=== PATIENT | male | born 1940 | race Caucasian/White ===

== ENCOUNTER 2018-11-14 14:25 | Inpatient (IN) | payer MEDICARE ==
[2018-11-09 16:52] LABS: BASOPHILS % (AUTO) 0.6 % (0-1); EOSINOPHILS # (AUTO) 0.2 X10'3 (0-0.9); EOSINOPHILS % (AUTO) 4.5 % (0-6); HEMATOCRIT 49.8 % (42.0-52.0); HEMOGLOBIN 15.8 g/dl (14.0-17.9); LYMPHOCYTES # (AUTO) 1.3 X10'3 (1.1-4.8); LYMPHOCYTES % (AUTO) 26.1 % (21-51); MEAN CORPUSCULAR HEMOGLOBIN 29.8 PG (27.0-31.0); MEAN CORPUSCULAR HGB CONC 31.8 % (33.0-36.5); MEAN CORPUSCULAR VOLUME 93.7 FL (78-98); MEAN PLATELET VOLUME 8.5 FL (7.4-10.4); MONOCYTES # (AUTO) 0.4 X10'3 (0-0.9); MONOCYTES % (AUTO) 8.4 % (2-12); NEUTROPHILS % (AUTO) 60.4 % (42-75); PLATELET COUNT 175 X10'3 (140-440); RED BLOOD COUNT 5.31 X10'6 (4.70-6.10); RED CELL DISTRIBUTION WIDTH 13.9 % (11.5-14.5); WHITE BLOOD COUNT 4.9 X10'3 (4.5-11.0)
[2018-11-09 17:00] LABS: ALBUMIN 3.8 G/DL (3.4-5.0); ANION GAP 9 (8-16); BLOOD UREA NITROGEN 21 MG/DL (7-18); BUN/CREATININE RATIO 16.7 (5.4-32.0); CALCIUM 8.8 MG/DL (8.5-10.1); CHLORIDE 106 MMOL/L (99-107); CREATININE 1.26 MG/DL (0.60-1.10); GLUCOSE 188 MG/DL (70-104); POTASSIUM 3.7 MMOL/L (3.5-5.1); SODIUM 143 MMOL/L (135-145); TOTAL CARBON DIOXIDE 27.8 MMOL/L (24-32); eGFR 55 ML/MIN
[2018-11-09 17:07] LABS: INR 1.1 INR; PARTIAL THROMBOPLASTIN TIME 27 SECONDS (22-32); PROTHROMBIN TIME 11.5 SECONDS (9.0-12.0)
[2018-11-14] VITALS (15 sets, daily range): BP systolic 109–158; BP diastolic 60–82
[~2018-11-14] VITALS: Ht 182.9 cm; Wt 120.0 kg
[2018-11-14 08:26] LABS: BASOPHILS % (AUTO) 0.4 % (0-1); EOSINOPHILS # (AUTO) 0.3 X10'3 (0-0.9); HEMATOCRIT 46.9 % (42.0-52.0); HEMOGLOBIN 15.3 g/dl (14.0-17.9); LYMPHOCYTES # (AUTO) 1.2 X10'3 (1.1-4.8); MEAN CORPUSCULAR HGB CONC 32.6 % (33.0-36.5); MEAN CORPUSCULAR VOLUME 92.3 FL (78-98); MEAN PLATELET VOLUME 7.7 FL (7.4-10.4); MONOCYTES # (AUTO) 0.4 X10'3 (0-0.9); MONOCYTES % (AUTO) 8.6 % (2-12); NEUTROPHILS # (AUTO) 2.7 X10'3 (1.8-7.7); PLATELET COUNT 175 X10'3 (140-440); RED BLOOD COUNT 5.08 X10'6 (4.70-6.10); RED CELL DISTRIBUTION WIDTH 14.6 % (11.5-14.5); WHITE BLOOD COUNT 4.6 X10'3 (4.5-11.0)
[2018-11-14 08:50] LABS: ALBUMIN 3.8 G/DL (3.4-5.0); ANION GAP 11 (8-16); BLOOD UREA NITROGEN 19 MG/DL (7-18); BUN/CREATININE RATIO 12.9 (5.4-32.0); CALCIUM 9.3 MG/DL (8.5-10.1); CHLORIDE 104 MMOL/L (99-107); CREATININE 1.47 MG/DL (0.60-1.10); GLUCOSE 205 MG/DL (70-104); POTASSIUM 4.1 MMOL/L (3.5-5.1); SODIUM 140 MMOL/L (135-145); TOTAL CARBON DIOXIDE 24.8 MMOL/L (24-32); eGFR 46 ML/MIN
[2018-11-14 08:53] LABS: INR 1.2 INR; PARTIAL THROMBOPLASTIN TIME 27 SECONDS (22-32); PROTHROMBIN TIME 11.7 SECONDS (9.0-12.0)
[2018-11-14] MEDS ORDERED: LORazepam 0.5 MG tablet PO PRN (14:50)
[2018-11-14] MEDS ORDERED: diphenhydrAMINE 25mg capsule PO PRN (14:50)
[2018-11-14] MEDS ORDERED: AMLO5TAB PO (15:02)
[2018-11-14] MEDS ORDERED: ASPI-1265 PO (15:02)
[2018-11-14] MEDS ORDERED: OMEP20CA10 PO (15:02)
[2018-11-14] MEDS ORDERED: ALLO100T PO (15:02)
[2018-11-14] MEDS ORDERED: ATOR80TA PO (15:02)
[2018-11-14] MEDS ORDERED: NAPR-56 PO (15:02)
[2018-11-14] MEDS ORDERED: EVOL140S IM (15:02)
[2018-11-14] MEDS ORDERED: GABA-532 PO (15:02)
[2018-11-14] MEDS ORDERED: LOSA1TAB39 PO (15:02)
[2018-11-14] MEDS: normal saline 1000ml 1,000 ML IV SCH (17:04)
[2018-11-14] MEDS ORDERED: iohexol 350MG/ML 100ml bottle IV ONE (18:04)
[2018-11-14] MEDS ORDERED: LIDOcaine 1% (10mg/ml)w/preservative injection 20ml MDV ONE (18:04)
[2018-11-14] MEDS ORDERED: midazolam 2 mg/2 ml injection ONE (18:04)
[2018-11-14] MEDS ORDERED: fentaNYL/PF 50MCG/1 ML 2ML syringe ONE (18:04)
[2018-11-14] MEDS ORDERED: HYDROcodone/acetaminophen 5mg/325mg tablet PO PRN (19:10)
[2018-11-14] MEDS ORDERED: ondansetron/PF 4mg/2ml inj IV PRN (19:10)
[2018-11-14] MEDS ORDERED: acetaminophen 325mg tablet PO PRN (19:15)
[2018-11-14] MEDS ORDERED: HYDROcodone/acetaminophen 10/325mg tab PO PRN (19:15)
[2018-11-14] MEDS ORDERED: naproxen 500mg tablet PO PRN (19:15)
[2018-11-14] MEDS ORDERED: OXAZEpam 15mg capsule PO PRN (19:15)
[2018-11-14] MEDS ORDERED: proCHLORperazine 10 MG/2 ml inj IV PRN (19:15)
--- NOTE | 2018-11-14 19:45 | NUR ---
Patient in room PCU 3017. I have received report from Yajaira BOWER and had the opportunity to ask questions and assume patient care with Rachelle BOWER.
--- NOTE | 2018-11-14 19:45 | NUR ---
Patient report given, questions answered & plan of care reviewed with SATHISH Bush & Lorrie BOWER, VSS, pt is in stable condition, Taniya mesa CDI, pt in room #3019T, pt is in no distress at this time, pt's and brother at pt's bedside.
[2018-11-14] MEDS: atorvastatin 20mg tablet PO SCH (22:01)
[2018-11-15] VITALS (10 sets, daily range): BP systolic 122–156; BP diastolic 56–87
[2018-11-15] MEDS: normal saline 1000ml 1,000 ML IV SCH ×3 (01:01→20:53)
[2018-11-15] MEDS ORDERED: heparin 10,000 units/1 ML INJ ONE (06:00)
[2018-11-15] MEDS ORDERED: papaverine 30 mg/ml 2ml inj. ONE (06:00)
--- NOTE | 2018-11-15 06:14 | NUR ---
Problems reprioritized. Patient report given, questions answered & plan of care reviewed with Eduarda BOWER. orientee documentation: I have reviewed and agree with all interventions, assessments performed and documented by luly BOWER . pt rested throughout night, home cpap on. voids clear yellow urine, no pain, no complaints. groin site CDI, pulses doppler.
--- NOTE | 2018-11-15 06:25 | NUR ---
Patient in room U 3017. I have received report from and had the opportunity to ask questions and assume patient care. Addendum: 11/15/18 at 0642 by Juany Pressley RN Received report from SATHISH Andrew & SATHISH Bush
[2018-11-15 06:27] LABS: CHOL/HDL RATIO 1.8 (0.00-4.99); CHOLESTEROL 62 MG/DL (0-200); CREATININE 1.11 MG/DL (0.60-1.10); HDL CHOLESTEROL 34 MG/DL (35-60); LDL CHOLESTEROL 15 MG/DL (50-100); TRIGLYCERIDES 110 MG/DL (20-135); eGFR 64 ML/MIN
[2018-11-15] MEDS ORDERED: dextrose 50%-water 50ml dispensing syringe IV PRN ×2 (06:50)
[2018-11-15] MEDS ORDERED: insulin Lispro (HumaLOG) vial - multi-dose SQ SCH (06:50)
[2018-11-15] MEDS ORDERED: dextrose ORAL solution 15 GM/59 ML bottle PO PRN ×2 (06:50)
[2018-11-15] MEDS ORDERED: glucagon, human recombinant 1mg kit SUBCUT PRN (06:50)
[2018-11-15] MEDS ORDERED: MESSAGE TO PHARMACY PO ONE (06:50)
[2018-11-15] MEDS ORDERED: MESSAGE TO NURSING PO ONE ×2 (07:25→10:00)
[2018-11-15] MEDS: losartan 50mg tablet PO SCH (08:35)
[2018-11-15] MEDS: allopurinol 300 MG tablet PO SCH (08:35)
[2018-11-15] MEDS: pantoprazole 40mg Tablet.DR PO SCH (08:36)
[2018-11-15] MEDS: gabapentin 300mg capsule PO SCH (08:36)
[2018-11-15] MEDS: naproxen 500mg tablet PO SCH ×2 (08:36→17:41)
[2018-11-15] MEDS: amLODIPine 5mg tablet PO SCH (08:36)
[2018-11-15] MEDS: aspirin 81mg tab.chew PO SCH (08:37)
[2018-11-15] MEDS: HYDROchlorothiazide 25mg tablet PO SCH (08:38)
[2018-11-15 08:51] LABS: HEMOGLOBIN 14.7 g/dl (14.0-17.9); MEAN CORPUSCULAR HEMOGLOBIN 28.9 PG (27.0-31.0); MEAN CORPUSCULAR HGB CONC 31.2 % (33.0-36.5); MEAN CORPUSCULAR VOLUME 92.7 FL (78-98); MEAN PLATELET VOLUME 8.4 FL (7.4-10.4); PLATELET COUNT 159 X10'3 (140-440); RED BLOOD COUNT 5.07 X10'6 (4.70-6.10); RED CELL DISTRIBUTION WIDTH 13.3 % (11.5-14.5); WHITE BLOOD COUNT 4.3 X10'3 (4.5-11.0)
[2018-11-15 08:59] LABS: ALBUMIN 3.4 G/DL (3.4-5.0); ANION GAP 9 (8-16); BLOOD UREA NITROGEN 16 MG/DL (7-18); BUN/CREATININE RATIO 13.4 (5.4-32.0); CALCIUM 9.3 MG/DL (8.5-10.1); CHLORIDE 106 MMOL/L (99-107); CREATININE 1.19 MG/DL (0.60-1.10); GLUCOSE 162 MG/DL (70-104); POTASSIUM 4.2 MMOL/L (3.5-5.1); SODIUM 142 MMOL/L (135-145); TOTAL CARBON DIOXIDE 27.5 MMOL/L (24-32); eGFR 59 ML/MIN
[2018-11-15 09:00] LABS: PROTHROMBIN TIME 11.9 SECONDS (9.0-12.0)
[2018-11-15 09:01] LABS: INR 1.2 INR; PARTIAL THROMBOPLASTIN TIME 27 SECONDS (22-32)
[2018-11-15 09:07] LABS: HEMOGLOBIN A1C 6.6 % (4.5-6.2)
--- NOTE | 2018-11-15 14:40 | NUR ---
Patient in room MED 307. I have received report from Eduarda BOWER and had the opportunity to ask questions and assume patient care.
--- NOTE | 2018-11-15 14:41 | NUR ---
Problems reprioritized. Patient report given, questions answered & plan of care reviewed with SATHISH Ward. Pt to be transported to room 307.
[2018-11-15 16:22] LABS: CLARITY,URINE CLEAR (Clear); COLOR,URINE YELLOW (Yellow); GLUCOSE, URINE NEGATIVE (Neg); KETONES,URINE NEGATIVE (Neg); LEUKOCYTE ESTERASE ,URINE NEGATIVE (Neg); NITRITES, URINE NEGATIVE (Neg); OCCULT BLOOD,URINE NEGATIVE (Neg); PH,URINE 6.5 (4.8-8.0); PROTEIN,URINE NEGATIVE (Neg)
[2018-11-15 16:37] LABS: UA COLLECTION TYPE VOIDED
[2018-11-15 17:41] LABS: ABG BASE EXCESS 1.1 mmol/L (-2.0-3.0); ABG HCO3 26.3 mmol/L (22.0-26.0); ABG OXYGEN SATURATION 94.3 % (95-98); ABG PCO2 (T) 43.3 mmHg (35.0-48.0); ABG PO2 (T) 71.8 mmHg (83-108); ALLEN'S TEST Positive; FCOHb 1.2 % (0.5-1.5); FLOW 2 L/min; FMetHb 0.2 % (0.3-1.12); PATIENT TEMPERATURE 36.8; RESPIRATORY RATE (OBSERVED) 16 b/min; TOTAL HEMOGLOBIN 15.3 G/dl (14.0-18.0)
[2018-11-15] MEDS ORDERED: ringers solution, lacted 1,000 ML IV ONE (17:47)
--- NOTE | 2018-11-15 18:17 | NUR ---
Problems reprioritized. Patient report given, questions answered & plan of care reviewed with Burton BOWER.
[2018-11-15] MEDS: atorvastatin 20mg tablet PO SCH (20:34)
[2018-11-15] MEDS ORDERED: insulin glargine (Lantus) pen - multi-dose SQ SCH (21:00)
[2018-11-16] VITALS (22 sets, daily range): BP systolic 106–152; BP diastolic 48–72
[2018-11-16] MEDS ORDERED: MESSAGE TO NURSING PO ONE ×3 (01:00→05:30)
[2018-11-16] MEDS ORDERED: metoprolol tartrate 12.5mg (1/2 tablet) PO SCH (05:00)
[2018-11-16] MEDS ORDERED: dextrose 50%-water 50ml dispensing syringe IV PRN ×2 (05:00→11:45)
[2018-11-16 05:27] LABS: EOSINOPHILS # (AUTO) 0.2 X10'3 (0-0.9); EOSINOPHILS % (AUTO) 4.3 % (0-6); HEMATOCRIT 45.5 % (42.0-52.0); HEMOGLOBIN 14.7 g/dl (14.0-17.9); LYMPHOCYTES # (AUTO) 1.3 X10'3 (1.1-4.8); LYMPHOCYTES % (AUTO) 27.5 % (21-51); MEAN CORPUSCULAR HEMOGLOBIN 30.1 PG (27.0-31.0); MEAN CORPUSCULAR HGB CONC 32.2 % (33.0-36.5); MEAN CORPUSCULAR VOLUME 93.5 FL (78-98); MEAN PLATELET VOLUME 8.5 FL (7.4-10.4); MONOCYTES # (AUTO) 0.4 X10'3 (0-0.9); MONOCYTES % (AUTO) 8.7 % (2-12); NEUTROPHILS # (AUTO) 2.7 X10'3 (1.8-7.7); NEUTROPHILS % (AUTO) 58.5 % (42-75); PLATELET COUNT 132 X10'3 (140-440); RED BLOOD COUNT 4.87 X10'6 (4.70-6.10); RED CELL DISTRIBUTION WIDTH 13.4 % (11.5-14.5); WHITE BLOOD COUNT 4.6 X10'3 (4.5-11.0)
[2018-11-16] MEDS: insulin regular, human 100 UNIT in normal saline 100ml IV soln 100 ML IV SCH ×4 (05:30→14:18)
[2018-11-16] MEDS ORDERED: ceFAZolin inj. 3,000 MG in normal saline 100ml IV soln 100 ML IV ONE (05:30)
[2018-11-16] MEDS ORDERED: mupirocin 2% nasal ointment 1gm UD NS SCH (05:30)
[2018-11-16 05:35] LABS: ALBUMIN 3.4 G/DL (3.4-5.0); ANION GAP 8 (8-16); BLOOD UREA NITROGEN 16 MG/DL (7-18); BUN/CREATININE RATIO 14.3 (5.4-32.0); CALCIUM 9.4 MG/DL (8.5-10.1); CHLORIDE 108 MMOL/L (99-107); CREATININE 1.12 MG/DL (0.60-1.10); GLUCOSE 124 MG/DL (70-104); POTASSIUM 4.3 MMOL/L (3.5-5.1); SODIUM 143 MMOL/L (135-145); TOTAL CARBON DIOXIDE 26.6 MMOL/L (24-32); eGFR 63 ML/MIN
[2018-11-16 05:47] LABS: INR 1.2 INR; PROTHROMBIN TIME 12.2 SECONDS (9.0-12.0)
[2018-11-16] MEDS ORDERED: LORazepam 2 mg/ml vial IV ONE (06:00)
[2018-11-16] MEDS ORDERED: famotidine 20mg tablet PO ONE (06:00)
--- NOTE | 2018-11-16 06:44 | NUR ---
Pt left for OR
[2018-11-16] MEDS: normal saline 1000ml 1,000 ML IV SCH (06:50)
[2018-11-16 06:51] LABS: PLATELET ESTIMATE DECREASED
[2018-11-16] MEDS ORDERED: SUFENTANIL CITRATE 50 MCG/ML 2ml ampule IV ONE ×2 (06:52→08:59)
[2018-11-16] MEDS ORDERED: MIDAZolam 1mg/ml 10ml vial ONE (06:52)
[2018-11-16] MEDS ORDERED: albumin 25% 50mL bottle IV ONE (06:53)
[2018-11-16] MEDS ORDERED: propofol 10mg/ml 20ml vial IV ONE (06:53)
[2018-11-16] MEDS ORDERED: heparin 1,000 units/ml 10ml inj ONE (06:53)
[2018-11-16] MEDS ORDERED: methylPREDNISolone sod succ 1000mg vial ONE (06:53)
[2018-11-16] MEDS ORDERED: aminocaproic acid 250 MG/1 ML inj. ONE (06:53)
[2018-11-16] MEDS ORDERED: potassium Cl 2 mEq/ml inj IV ONE (06:53)
[2018-11-16] MEDS ORDERED: protamine sulf. 10mg/ml inj. IV ONE (06:53)
[2018-11-16] MEDS ORDERED: sodium bicarbonate (8.4%) 1 mEq/ml syringe ONE (06:53)
[2018-11-16] MEDS ORDERED: calcium chloride 100 MG/1 ML inj IV ONE (06:53)
[2018-11-16] MEDS ORDERED: INSULIN R 100 UNIT in NS 100ML (1 UNIT/1 ML) BAG IV ONE (06:53)
[2018-11-16] MEDS ORDERED: heparin 10,000 units/1 ML INJ ONE (06:53)
[2018-11-16] MEDS ORDERED: isoflurane 100ml inhalation liquid IH ONE (06:53)
[2018-11-16] MEDS ORDERED: magnesium sulf 1 GM/2 ML ONE (06:53)
[2018-11-16] MEDS ORDERED: nitroGLYCERIN in D5W 50mg/250ml (Tridil) infusion IV ONE (06:53)
[2018-11-16] MEDS ORDERED: LIDOcaine 2% (20 mg/ml) 5ml cardiac syringe ONE (06:53)
[2018-11-16] MEDS ORDERED: insulin glargine (Lantus) pen - multi-dose SQ PRN (07:25)
[2018-11-16 07:30] LABS: ABG BASE EXCESS 0.1 mmol/L (-2.0-3.0); ABG OXYGEN SATURATION 99.4 % (95-98); ABG PCO2 25.4 mmHg (35.0-45.0); ABG PH 7.536 (7.350-7.450); ABG PO2 355.4 mmHg (60.0-100.0); CL (ABG) 110 mmol/L (99-107); FCOHb 1.2 % (0.5-1.5); FMetHb 0.2 % (0.3-1.12); GLUCOSE (ABG) 124 mg/dl (70-105); IONIZED CA (ABG) 1.17 mmol/L (1.03-1.32); K (ABG) 4.3 mmol/L (3.3-5.1); NA (ABG) 138 mmol/L (135-145); TOTAL HEMOGLOBIN 14.5 G/dl (14.0-18.0)
[2018-11-16] MEDS: amLODIPine 5mg tablet PO SCH (08:00)
[2018-11-16] MEDS: HYDROchlorothiazide 25mg tablet PO SCH (08:00)
[2018-11-16] MEDS: allopurinol 300 MG tablet PO SCH (08:00)
[2018-11-16] MEDS: losartan 50mg tablet PO SCH (08:00)
[2018-11-16] MEDS: gabapentin 300mg capsule PO SCH (08:00)
[2018-11-16] MEDS: aspirin 81mg tab.chew PO SCH (08:00)
[2018-11-16] MEDS: pantoprazole 40mg Tablet.DR PO SCH (08:00)
[2018-11-16] MEDS ORDERED: heparin 10,000 units/1 ML INJ IR ONE (08:07)
[2018-11-16] MEDS ORDERED: papaverine 30 mg/ml 2ml inj. IA ONE (08:07)
[2018-11-16 08:20] LABS: ACT @ 1.70 U 357 SEC (193-297); ACT @ 2.84 U 521 SEC (260-420); BASELINE ACT 162 SEC (101-148)
[2018-11-16] MEDS: naproxen 500mg tablet PO SCH (08:30)
[2018-11-16 09:00] LABS: ABG BASE EXCESS 0.4 mmol/L (-2.0-3.0); ABG HCO3 24.8 mmol/L (22.0-26.0); ABG OXYGEN SATURATION 99.3 % (95-98); ABG PCO2 38.8 mmHg (35.0-45.0); ABG PH 7.423 (7.350-7.450); ABG PO2 374.3 mmHg (60.0-100.0); CL (ABG) 108 mmol/L (99-107); FCOHb 0.6 % (0.5-1.5); FMetHb 0.3 % (0.3-1.12); FO2Hb 98.4 % (94-100); GLUCOSE (ABG) 133 mg/dl (70-105); IONIZED CA (ABG) 1.09 mmol/L (1.03-1.32); K (ABG) 5.4 mmol/L (3.3-5.1); NA (ABG) 135 mmol/L (135-145); TOTAL HEMOGLOBIN 11.7 G/dl (14.0-18.0)
[2018-11-16] MEDS ORDERED: insulin Lispro (HumaLOG) vial - multi-dose SQ SCH (09:00)
[2018-11-16] MEDS ORDERED: ipratropium/albuterol 3ml nebule IH PRN (09:15)
[2018-11-16 09:31] LABS: ABG BASE EXCESS VENOUS 0.7 mmol/L; ABG HCO3 VENOUS 25.4 mmol/L; ABG PO2 VENOUS 52.1 mmHg; CL (ABG) 107 mmol/L (99-107); FCOHb VENOUS 1.1 %; FHHb VENOUS 11.5 %; FMetHb VENOUS 0.2 %; FO2Hb VENOUS 87.2 %; GLUCOSE (ABG) 149 mg/dl (70-105); K (ABG) 5.7 mmol/L (3.3-5.1); NA (ABG) 136 mmol/L (135-145); TOTAL HEMOGLOBIN 11.4 G/dl (14.0-18.0)
[2018-11-16 10:05] LABS: ABG BASE EXCESS 0.2 mmol/L (-2.0-3.0); ABG HCO3 24.8 mmol/L (22.0-26.0); ABG OXYGEN SATURATION 99.3 % (95-98); ABG PCO2 39.7 mmHg (35.0-45.0); ABG PH 7.413 (7.350-7.450); ABG PO2 225.7 mmHg (60.0-100.0); CL (ABG) 108 mmol/L (99-107); FO2Hb 98.3 % (94-100); GLUCOSE (ABG) 154 mg/dl (70-105); IONIZED CA (ABG) 1.11 mmol/L (1.03-1.32); NA (ABG) 135 mmol/L (135-145); TOTAL HEMOGLOBIN 11.6 G/dl (14.0-18.0)
[2018-11-16 10:36] LABS: ABG BASE EXCESS -0.2 mmol/L (-2.0-3.0); ABG HCO3 23.8 mmol/L (22.0-26.0); ABG OXYGEN SATURATION 98.3 % (95-98); ABG PCO2 36.5 mmHg (35.0-45.0); ABG PH 7.432 (7.350-7.450); ABG PO2 133.7 mmHg (60.0-100.0); CL (ABG) 107 mmol/L (99-107); FCOHb 0.7 % (0.5-1.5); FMetHb 0.3 % (0.3-1.12); FO2Hb 97.3 % (94-100); GLUCOSE (ABG) 126 mg/dl (70-105); IONIZED CA (ABG) 1.23 mmol/L (1.03-1.32); K (ABG) 5.6 mmol/L (3.3-5.1); NA (ABG) 136 mmol/L (135-145); TOTAL HEMOGLOBIN 11.1 G/dl (14.0-18.0)
--- NOTE | 2018-11-16 10:55 | NUR ---
Received to room 2011B, accompanied by MDs and surgical crew. Placed on ventilator, to campus monitor, arterial line and PA line pressure monitored. Chest tubes to suction at 20 cm. Kang cath to gravity drainage. Dressings are dry and intact. See assessment record. All vasoactive drugs are infusing via central line.Dopamine at 1 mcg, Tridil at 50 mcg to keep sbp less then 130 Volume infusing CXR and lab drawn Addendum: 11/16/18 at 1734 by Kaitlynn Freitas RN pt arrived at 1155
[2018-11-16 11:26] LABS: ABG BASE EXCESS VENOUS -2.8 mmol/L; ABG PCO2 VENOUS 43.8 mmHg; ABG PO2 VENOUS 46.1 mmHg; CL (ABG) 108 mmol/L (99-107); FCOHb VENOUS 1.1 %; FHHb VENOUS 19.6 %; FMetHb VENOUS 0.4 %; FO2Hb VENOUS 78.9 %; GLUCOSE (ABG) 99 mg/dl (70-105); IONIZED CA (ABG) 1.26 mmol/L (1.03-1.32); K (ABG) 4.9 mmol/L (3.3-5.1); NA (ABG) 138 mmol/L (135-145); TOTAL HEMOGLOBIN 11.7 G/dl (14.0-18.0)
[2018-11-16] MEDS ORDERED: DOPamine 400mg/D5W 250ml 250 ML IV PRN (11:44)
[2018-11-16] MEDS ORDERED: niCARDipine-NS 40mg/200ml IVPB 200 ML IV PRN (11:44)
[2018-11-16] MEDS ORDERED: nitroGLYCERIN-Tridil 50MG/D5W 250 ML IV PRN (11:44)
[2018-11-16] MEDS ORDERED: Neutra Phos packet PO PRN (11:45)
[2018-11-16] MEDS ORDERED: insulin regular, human inj. 100 UNITS in normal saline 100ml IV soln 100 ML IV SCH ×2 (11:45)
[2018-11-16] MEDS ORDERED: HYDROcodone/acetaminophen 10/325mg tab PO PRN ×2 (11:45)
[2018-11-16] MEDS ORDERED: pantoprazole 40 MG vial IV ONE (11:45)
[2018-11-16] MEDS ORDERED: metoclopramide 5 mg/ml inj IV PRN (11:45)
[2018-11-16] MEDS ORDERED: ondansetron/PF 4mg/2ml inj IV PRN (11:45)
[2018-11-16] MEDS ORDERED: potassium Cl 20mEq/100mL bag 100 ML IV PRN ×3 (11:45)
[2018-11-16] MEDS ORDERED: albumin (Human) 5% 250ml 250 ML IV PRN (11:45)
[2018-11-16] MEDS ORDERED: normal saline 250ml IV soln 250 ML IV PRN (11:45)
[2018-11-16] MEDS ORDERED: sodium phosphate inj. 30 MMOL in dextrose 5%-water 250 ML IV PRN (11:45)
[2018-11-16] MEDS ORDERED: morphine 4 MG/ML inj SYRINge IV PRN (11:45)
[2018-11-16] MEDS ORDERED: magnesium 4gm in 100ml NS 100 ML IV PRN (11:45)
[2018-11-16] MEDS ORDERED: magnesium hydroxide 30ml (MOM) UD suspension PO PRN (11:45)
[2018-11-16] MEDS ORDERED: acetaminophen 325mg tablet PO PRN (11:45)
[2018-11-16] MEDS ORDERED: sodium phosphate inj. 15 MMOL in dextrose 5%-water 150 ML IV PRN (11:45)
[2018-11-16 11:50] LABS: ACTIVATED CLOTTING TIME 122 SEC (101-148)
[2018-11-16] MEDS ORDERED: rocuronium 10mg/ml inj IV ONE (12:06)
[2018-11-16] MEDS ORDERED: glycopyrrolate 0.2mg/ml inj ONE (12:06)
[2018-11-16] MEDS ORDERED: phenylephrine 10mg/ml inj. ONE (12:06)
[2018-11-16] MEDS ORDERED: ePHEDrine 50MG/ML INJ. ONE (12:06)
[2018-11-16] MEDS ORDERED: etomidate 2mg/ml inj. ONE (12:06)
[2018-11-16] MEDS ORDERED: LIDOcaine 2% (20mg/ml) 5ml vial ONE (12:06)
--- NOTE | 2018-11-16 12:15 | NUR ---
Pt in junc rhythm hr 60 Atrial pacer turned on at 78 with good capture VSS
[2018-11-16 12:21] LABS: ABG BASE EXCESS -2.1 mmol/L (-2.0-3.0); ABG HCO3 22.8 mmol/L (22.0-26.0); ABG OXYGEN SATURATION 95.9 % (95-98); ABG PCO2 (T) 39.5 mmHg (35.0-48.0); ABG PH (T) 7.379 (7.350-7.450); ABG PO2 (T) 89.3 mmHg (83-108); FCOHb 0.6 % (0.5-1.5); FMetHb 0.2 % (0.3-1.12); FO2Hb 95.1 % (94-100); MINUTE VOLUME 11 L/min; PEEP 5 cm H2O; RESPIRATORY RATE 12 b/min; RESPIRATORY RATE (OBSERVED) 12 b/min; TIDAL VOLUME 800 mL; TOTAL HEMOGLOBIN 14.2 G/dl (14.0-18.0)
[2018-11-16 12:25] LABS: BASOPHILS % (AUTO) 0.1 % (0-1); EOSINOPHILS # (AUTO) 0.1 X10'3 (0-0.9); EOSINOPHILS % (AUTO) 0.9 % (0-6); HEMATOCRIT 41.3 % (42.0-52.0); HEMOGLOBIN 13.4 g/dl (14.0-17.9); LYMPHOCYTES # (AUTO) 0.7 X10'3 (1.1-4.8); LYMPHOCYTES % (AUTO) 8.7 % (21-51); MEAN CORPUSCULAR HEMOGLOBIN 30.4 PG (27.0-31.0); MEAN CORPUSCULAR HGB CONC 32.4 % (33.0-36.5); MEAN CORPUSCULAR VOLUME 93.8 FL (78-98); MONOCYTES # (AUTO) 0.2 X10'3 (0-0.9); MONOCYTES % (AUTO) 2.7 % (2-12); NEUTROPHILS # (AUTO) 6.8 X10'3 (1.8-7.7); NEUTROPHILS % (AUTO) 87.6 % (42-75); PLATELET COUNT 118 X10'3 (140-440); RED BLOOD COUNT 4.41 X10'6 (4.70-6.10); RED CELL DISTRIBUTION WIDTH 13.2 % (11.5-14.5); WHITE BLOOD COUNT 7.8 X10'3 (4.5-11.0)
--- NOTE | 2018-11-16 12:30 | NUR ---
Cardene gtt started to keep sbp less then 130 tridil gtt being weaned Mod amt of chest tube drainage noted
[2018-11-16 12:37] LABS: ALANINE AMINOTRANSFERASE 21 U/L (12-78); ALBUMIN 3.2 G/DL (3.4-5.0); ALBUMIN/GLOBULIN RATIO 1.5 (1.1-1.5); ALKALINE PHOSPHATASE 50 IU/L (46-116); ANION GAP 8 (8-16); ASPARTATE AMINO TRANSFERASE 43 U/L (10-37); BILIRUBIN,TOTAL 1.2 MG/DL (0.1-1.0); BLOOD UREA NITROGEN 15 MG/DL (7-18); BUN/CREATININE RATIO 12.1 (5.4-32.0); CALCIUM 8.8 MG/DL (8.5-10.1); CHLORIDE 110 MMOL/L (99-107); CREATININE 1.24 MG/DL (0.60-1.10); GLUCOSE 101 MG/DL (70-104); MAGNESIUM 3.1 MG/DL (1.5-2.4); PHOSPHORUS 1.6 MG/DL (2.3-4.5); POTASSIUM 4.4 MMOL/L (3.5-5.1); SODIUM 144 MMOL/L (135-145); TOTAL PROTEIN 5.4 G/DL (6.4-8.2); eGFR 56 ML/MIN
[2018-11-16 12:42] LABS: INR 1.3 INR; PARTIAL THROMBOPLASTIN TIME 30 SECONDS (22-32); PROTHROMBIN TIME 13.2 SECONDS (9.0-12.0)
--- NOTE | 2018-11-16 12:53 | NUR ---
Dr. Roque at bedside Aware of 192 ml in chest tube output CI now 2.4
[2018-11-16 13:00] LABS: K (ABG) 6.2 mmol/L (3.3-5.1)
[2018-11-16] MEDS: insulin Lispro (HumaLOG) vial - multi-dose SQ SCH ×2 (13:00→16:58)
[2018-11-16] MEDS: sodium chloride 0.45% 1,000 ML IV SCH (13:15)
--- NOTE | 2018-11-16 14:00 | NUR ---
Family into visit with progress report given Pt still sedated from surg Slow to wean fio2 Sat 95 % RR 12 Weaning cardene gtt Dopamine remains on Insulin gtt started per protocal Chest tube drainage remains mod amt VSS Hemodyn stable
[2018-11-16] MEDS: morphine 4 MG/ML inj SYRINge IV PRN ×2 (15:00→19:06)
--- NOTE | 2018-11-16 15:00 | NUR ---
Pt turned from side to side and reposit Open eyes to stimuli Does not follow CT drained 100 ml with pt coughing Dr. Roque called and notified Orders received and noted Cardene d/c Dopamine at 2 mcg with CI 2.4
--- NOTE | 2018-11-16 15:48 | NUR ---
2 units cryoprecipitate given and 10 Pk of platelets given Chest tube draining 50 to 100 ml per hour Urine output QS Pt starting to awaken open eyes and coughs CLEMONS but does not follow or nod head to questions VSS and Hemodyn stable
[2018-11-16] MEDS: ceFAZolin 1GM/D5W- ADD-VANTAGE 50 ML IV SCH (16:58)
--- NOTE | 2018-11-16 17:00 | NUR ---
Assessment ungh VSS and Hemodyn stable on dopamine 2 mcg Chest tube drainage slowing Reposit on left side Opens eyes becomes restless and anxious
[2018-11-16 18:08] LABS: BASOPHILS # (AUTO) 0.1 X10'3 (0-0.2); BASOPHILS % (AUTO) 1.1 % (0-1); EOSINOPHILS % (AUTO) 0.3 % (0-6); HEMATOCRIT 41.1 % (42.0-52.0); HEMOGLOBIN 13.6 g/dl (14.0-17.9); LYMPHOCYTES # (AUTO) 0.3 X10'3 (1.1-4.8); MEAN CORPUSCULAR HEMOGLOBIN 30.2 PG (27.0-31.0); MEAN CORPUSCULAR VOLUME 91.5 FL (78-98); MEAN PLATELET VOLUME 8.3 FL (7.4-10.4); MONOCYTES # (AUTO) 0.2 X10'3 (0-0.9); MONOCYTES % (AUTO) 2.6 % (2-12); NEUTROPHILS # (AUTO) 7.7 X10'3 (1.8-7.7); PLATELET COUNT 122 X10'3 (140-440); RED BLOOD COUNT 4.49 X10'6 (4.70-6.10); RED CELL DISTRIBUTION WIDTH 13.6 % (11.5-14.5); WHITE BLOOD COUNT 8.3 X10'3 (4.5-11.0)
[2018-11-16 18:20] LABS: ALBUMIN 3.4 G/DL (3.4-5.0); ANION GAP 11 (8-16); BLOOD UREA NITROGEN 18 MG/DL (7-18); BUN/CREATININE RATIO 12.9 (5.4-32.0); CALCIUM 9.3 MG/DL (8.5-10.1); CHLORIDE 109 MMOL/L (99-107); GLUCOSE 183 MG/DL (70-104); MAGNESIUM 2.7 MG/DL (1.5-2.4); PHOSPHORUS 1.8 MG/DL (2.3-4.5); POTASSIUM 4.7 MMOL/L (3.5-5.1); SODIUM 143 MMOL/L (135-145); TOTAL CARBON DIOXIDE 22.9 MMOL/L (24-32); eGFR 49 ML/MIN
--- NOTE | 2018-11-16 18:30 | NUR ---
Problems reprioritized. Patient report given, questions answered & plan of care reviewed with Dennise BOWER.
[2018-11-16] MEDS: docusate sod 100mg capsule PO SCH (20:00)
[2018-11-16] MEDS: vancomycin/NS 1 GM ADD-VANTAGE 250 ML IV SCH (20:30)
[2018-11-16] MEDS: mupirocin 2% nasal ointment 1gm UD NS SCH (20:31)
[2018-11-16 23:31] LABS: ABG BASE EXCESS -1.7 mmol/L (-2.0-3.0); ABG HCO3 22.7 mmol/L (22.0-26.0); ABG OXYGEN SATURATION 97.2 % (95-98); ABG PCO2 (T) 38.1 mmHg (35.0-48.0); ABG PH (T) 7.394 (7.350-7.450); ABG PO2 (T) 100.6 mmHg (83-108); FCOHb 0.6 % (0.5-1.5); FMetHb 0.3 % (0.3-1.12); FO2Hb 96.3 % (94-100); MINUTE VOLUME 8 L/min; PATIENT TEMPERATURE 37.2; PEEP 5 cm H2O; RESPIRATORY RATE 0 b/min; TIDAL VOLUME 1010 mL; TOTAL HEMOGLOBIN 13.5 G/dl (14.0-18.0)
[2018-11-17] VITALS (24 sets, daily range): BP systolic 99–142; BP diastolic 51–72
[2018-11-17] MEDS: ceFAZolin 1GM/D5W- ADD-VANTAGE 50 ML IV SCH ×4 (00:18→23:33)
[2018-11-17 03:27] LABS: BASOPHILS % (AUTO) 0.1 % (0-1); EOSINOPHILS % (AUTO) 0 % (0-6); HEMATOCRIT 38.5 % (42.0-52.0); HEMOGLOBIN 12.4 g/dl (14.0-17.9); LYMPHOCYTES # (AUTO) 0.4 X10'3 (1.1-4.8); LYMPHOCYTES % (AUTO) 3.8 % (21-51); MEAN CORPUSCULAR HEMOGLOBIN 30.2 PG (27.0-31.0); MEAN CORPUSCULAR HGB CONC 32.3 % (33.0-36.5); MEAN CORPUSCULAR VOLUME 93.5 FL (78-98); MEAN PLATELET VOLUME 8.5 FL (7.4-10.4); MONOCYTES # (AUTO) 0.5 X10'3 (0-0.9); NEUTROPHILS # (AUTO) 9.4 X10'3 (1.8-7.7); NEUTROPHILS % (AUTO) 91.1 % (42-75); PLATELET COUNT 109 X10'3 (140-440); RED BLOOD COUNT 4.12 X10'6 (4.70-6.10); RED CELL DISTRIBUTION WIDTH 13.6 % (11.5-14.5); WHITE BLOOD COUNT 10.3 X10'3 (4.5-11.0)
[2018-11-17 03:36] LABS: PROTHROMBIN TIME 11.9 SECONDS (9.0-12.0)
[2018-11-17 03:37] LABS: INR 1.2 INR; PARTIAL THROMBOPLASTIN TIME 25 SECONDS (22-32)
[2018-11-17 03:38] LABS: ALANINE AMINOTRANSFERASE 21 U/L (12-78); ALBUMIN 3.1 G/DL (3.4-5.0); ALBUMIN/GLOBULIN RATIO 1.3 (1.1-1.5); ALKALINE PHOSPHATASE 45 IU/L (46-116); ANION GAP 8 (8-16); ASPARTATE AMINO TRANSFERASE 59 U/L (10-37); BILIRUBIN,TOTAL 0.7 MG/DL (0.1-1.0); BLOOD UREA NITROGEN 23 MG/DL (7-18); BUN/CREATININE RATIO 14.5 (5.4-32.0); CALCIUM 8.7 MG/DL (8.5-10.1); CHLORIDE 112 MMOL/L (99-107); CREATININE 1.59 MG/DL (0.60-1.10); GLUCOSE 132 MG/DL (70-104); MAGNESIUM 2.3 MG/DL (1.5-2.4); PHOSPHORUS 2.6 MG/DL (2.3-4.5); POTASSIUM 4.7 MMOL/L (3.5-5.1); SODIUM 145 MMOL/L (135-145); TOTAL CARBON DIOXIDE 25.5 MMOL/L (24-32); TOTAL PROTEIN 5.5 G/DL (6.4-8.2); eGFR 42 ML/MIN
--- NOTE | 2018-11-17 06:24 | NUR ---
Problems reprioritized. Patient report given, questions answered & plan of care reviewed with RENETTA BOWER.
--- NOTE | 2018-11-17 06:32 | NUR ---
Hold beta aron this AM per Ari SEPULVEDA
[2018-11-17] MEDS ORDERED: furosemide 20 MG/2 ML vial IV ONE (06:35)
[2018-11-17] MEDS: metoprolol tartrate 12.5mg (1/2 tablet) PO SCH ×2 (08:00→21:25)
[2018-11-17] MEDS: docusate sod 100mg capsule PO SCH ×2 (08:49→21:25)
[2018-11-17] MEDS: gabapentin 300mg capsule PO SCH (08:49)
[2018-11-17] MEDS: allopurinol 300 MG tablet PO SCH (08:49)
[2018-11-17] MEDS: atorvastatin 10mg tablet PO SCH (08:49)
[2018-11-17] MEDS: vancomycin/NS 1 GM ADD-VANTAGE 250 ML IV SCH ×2 (08:49→21:24)
[2018-11-17] MEDS: mupirocin 2% nasal ointment 1gm UD NS SCH ×2 (08:49→21:25)
[2018-11-17] MEDS: aspirin 325mg tablet, delayed-release (Ecotrin) PO SCH (08:49)
[2018-11-17] MEDS: insulin Lispro (HumaLOG) vial - multi-dose SQ SCH ×2 (10:55→13:00)
[2018-11-17] MEDS: magnesium 2GM in 50ml NS 50 ML IV PRN (10:56)
--- NOTE | 2018-11-17 12:00 | NUR ---
PA line and ART line removed; no ectopy noted; patient tolerated well. Cannula tips intact.
[2018-11-17] MEDS: insulin regular, human 100 UNIT in normal saline 100ml IV soln 100 ML IV SCH ×2 (14:50)
[2018-11-17] MEDS ORDERED: insulin Lispro (HumaLOG) vial - multi-dose SQ SCH (17:15)
--- NOTE | 2018-11-17 18:32 | NUR ---
Problems reprioritized. Patient report given, questions answered & plan of care reviewed with Krunal BOWER.
[2018-11-17] MEDS: insulin glargine (Lantus) pen - multi-dose SQ SCH (21:00)
[2018-11-18] VITALS (19 sets, daily range): BP systolic 97–147; BP diastolic 64–79
[2018-11-18 03:51] LABS: BASOPHILS % (AUTO) 0 % (0-1); EOSINOPHILS % (AUTO) 0 % (0-6); HEMATOCRIT 36.1 % (42.0-52.0); HEMOGLOBIN 11.8 g/dl (14.0-17.9); LYMPHOCYTES # (AUTO) 0.5 X10'3 (1.1-4.8); LYMPHOCYTES % (AUTO) 4.3 % (21-51); MEAN CORPUSCULAR HEMOGLOBIN 30.3 PG (27.0-31.0); MEAN CORPUSCULAR HGB CONC 32.7 % (33.0-36.5); MEAN CORPUSCULAR VOLUME 92.8 FL (78-98); MEAN PLATELET VOLUME 9.1 FL (7.4-10.4); MONOCYTES # (AUTO) 0.8 X10'3 (0-0.9); MONOCYTES % (AUTO) 7.2 % (2-12); NEUTROPHILS # (AUTO) 9.9 X10'3 (1.8-7.7); NEUTROPHILS % (AUTO) 88.5 % (42-75); PLATELET COUNT 96 X10'3 (140-440); RED BLOOD COUNT 3.89 X10'6 (4.70-6.10); RED CELL DISTRIBUTION WIDTH 13.6 % (11.5-14.5); WHITE BLOOD COUNT 11.3 X10'3 (4.5-11.0)
[2018-11-18 03:52] LABS: ALBUMIN 3.1 G/DL (3.4-5.0); ANION GAP 7 (8-16); BLOOD UREA NITROGEN 34 MG/DL (7-18); BUN/CREATININE RATIO 19.9 (5.4-32.0); CALCIUM 8.5 MG/DL (8.5-10.1); CHLORIDE 106 MMOL/L (99-107); CREATININE 1.71 MG/DL (0.60-1.10); GLUCOSE 157 MG/DL (70-104); MAGNESIUM 2.5 MG/DL (1.5-2.4); PHOSPHORUS 3.8 MG/DL (2.3-4.5); POTASSIUM 5.3 MMOL/L (3.5-5.1); SODIUM 139 MMOL/L (135-145); TOTAL CARBON DIOXIDE 25.6 MMOL/L (24-32); eGFR 39 ML/MIN
--- NOTE | 2018-11-18 06:38 | NUR ---
Problems reprioritized. Patient report given, questions answered & plan of care reviewed with SATHISH Demarco.
--- NOTE | 2018-11-18 06:51 | NUR ---
Patient in room ICU 2042. I have received report from SATHISH Hector and had the opportunity to ask questions and assume patient care.
[2018-11-18] MEDS: pantoprazole 40mg Tablet.DR PO SCH (07:38)
[2018-11-18] MEDS ORDERED: EVOLOCUMAB IM SCH (08:00)
[2018-11-18] MEDS: docusate sod 100mg capsule PO SCH ×2 (08:26→20:09)
[2018-11-18] MEDS: metoprolol tartrate 12.5mg (1/2 tablet) PO SCH ×2 (08:26→20:00)
[2018-11-18] MEDS: atorvastatin 10mg tablet PO SCH (08:26)
[2018-11-18] MEDS: gabapentin 300mg capsule PO SCH (08:27)
[2018-11-18] MEDS: aspirin 325mg tablet, delayed-release (Ecotrin) PO SCH (08:27)
[2018-11-18] MEDS: mupirocin 2% nasal ointment 1gm UD NS SCH (08:27)
[2018-11-18] MEDS: allopurinol 300 MG tablet PO SCH (08:30)
[2018-11-18] MEDS ORDERED: amiodarone 150mg/dext, iso-os 100 ML IV ONE ×2 (10:18→10:20)
[2018-11-18] MEDS ORDERED: amiodarone/D5 360MG/200ML BAG 200 ML IV ONE (10:19)
[2018-11-18] MEDS: amiodarone/D5 360MG/200ML BAG 200 ML IV SCH ×3 (10:41→22:28)
[2018-11-18] MEDS: sodium chloride 0.45% 1,000 ML IV SCH ×2 (11:44→16:40)
--- NOTE | 2018-11-18 18:35 | NUR ---
Patient in room ICU 2042. I have received report from Dav BOWER, and had the opportunity to ask questions and assume patient care.
--- NOTE | 2018-11-18 19:15 | NUR ---
PT is sitting up in chair with 2 visitors at bedside. PT is on Amio gtt, running @ 0.5mg/hr. PT converted to SR just before 1900. PT consumed very little of his dinner. Linens changed and bed is ready for when PT is ready to get back to bed. Call light is within reach. Will continue to monitor.
[2018-11-18] MEDS: insulin glargine (Lantus) pen - multi-dose SQ SCH (21:00)
--- NOTE | 2018-11-18 22:00 | NUR ---
PT sleeping with no s/s of distress noted at this time. VSS. PT remains in SR. On Home CPAP machine. Bed is locked and low. Will continue to monitor.
[2018-11-19] VITALS (24 sets, daily range): BP systolic 112–154; BP diastolic 57–91
[2018-11-19] MEDS: insulin regular, human 100 UNIT in normal saline 100ml IV soln 100 ML IV SCH ×2 (00:10)
--- NOTE | 2018-11-19 00:52 | NUR ---
Problems reprioritized. Patient report given, questions answered & plan of care reviewed with Best BOWER.
--- NOTE | 2018-11-19 04:16 | NUR ---
[id number] I have received report and assumed care of pt. pt resting in bed denies distress
[2018-11-19] MEDS: amiodarone/D5 360MG/200ML BAG 200 ML IV SCH (04:46)
[2018-11-19 07:17] LABS: HEMOGLOBIN 11.1 g/dl (14.0-17.9)
[2018-11-19 07:23] LABS: BASOPHILS % (AUTO) 0.1 % (0-1); EOSINOPHILS % (AUTO) 0.1 % (0-6); HEMATOCRIT 34.6 % (42.0-52.0); LYMPHOCYTES # (AUTO) 0.9 X10'3 (1.1-4.8); LYMPHOCYTES % (AUTO) 12.3 % (21-51); MEAN CORPUSCULAR HEMOGLOBIN 30.1 PG (27.0-31.0); MEAN CORPUSCULAR HGB CONC 32.2 % (33.0-36.5); MEAN CORPUSCULAR VOLUME 93.5 FL (78-98); MONOCYTES # (AUTO) 0.7 X10'3 (0-0.9); MONOCYTES % (AUTO) 9.9 % (2-12); NEUTROPHILS # (AUTO) 5.9 X10'3 (1.8-7.7); NEUTROPHILS % (AUTO) 77.6 % (42-75); RED CELL DISTRIBUTION WIDTH 13.7 % (11.5-14.5); WHITE BLOOD COUNT 7.5 X10'3 (4.5-11.0)
[2018-11-19 07:26] LABS: ALBUMIN 2.8 G/DL (3.4-5.0); ANION GAP 6 (8-16); BLOOD UREA NITROGEN 39 MG/DL (7-18); BUN/CREATININE RATIO 28.9 (5.4-32.0); CALCIUM 8.4 MG/DL (8.5-10.1); CHLORIDE 106 MMOL/L (99-107); CREATININE 1.35 MG/DL (0.60-1.10); GLUCOSE 130 MG/DL (70-104); MAGNESIUM 2.2 MG/DL (1.5-2.4); PHOSPHORUS 3.1 MG/DL (2.3-4.5); POTASSIUM 4.7 MMOL/L (3.5-5.1); SODIUM 140 MMOL/L (135-145); TOTAL CARBON DIOXIDE 27.7 MMOL/L (24-32); eGFR 51 ML/MIN
[2018-11-19 07:27] LABS: MEAN PLATELET VOLUME 8.4 FL (7.4-10.4); PLATELET COUNT 76 X10'3 (140-440)
[2018-11-19] MEDS: atorvastatin 20mg tablet PO SCH (07:34)
[2018-11-19] MEDS: pantoprazole 40mg Tablet.DR PO SCH (07:35)
[2018-11-19] MEDS: gabapentin 300mg capsule PO SCH (07:35)
[2018-11-19] MEDS: aspirin 81mg tablet.DR PO SCH (07:35)
[2018-11-19] MEDS: allopurinol 300 MG tablet PO SCH (07:35)
[2018-11-19] MEDS: docusate sod 100mg capsule PO SCH ×2 (07:35→20:35)
[2018-11-19] MEDS: metoprolol tartrate 12.5mg (1/2 tablet) PO SCH ×2 (07:36→20:35)
[2018-11-19] MEDS: magnesium 2GM in 50ml NS 50 ML IV PRN (07:54)
--- NOTE | 2018-11-19 08:52 | NUR ---
Chest tubes dc'd by Tara Sibley and Beto Tejada. Order received to dc Amio gtt and start PO today. Pt. denies pain/discomfort. VSS.
[2018-11-19] MEDS: amiodarone 200mg tablet PO SCH ×2 (09:01→20:35)
--- NOTE | 2018-11-19 16:28 | NUR ---
Initial: Pt s/p CABG x 3 seen at bedside given written and verbal nutrition and wound healing after cardiac surgery education with RD contact information. Pt on no concentrated sweets with with fluctuating PO intake averaging 50-75%. Pt endorses a good appetite and states he gets full from meals and he usually just has two meals a day. Pt w/o a BM since 11/14 with routine Colace, pt agreeable to prunes, d/w dietary. Pt denies any food allergies or difficulty chewing/swallowing. Pt with no questions or concerns at this time. Will continue to follow. Recommendations: 1) Continue with NCS diet 2) Monitor need for additional bowel care 3) Wt per rx Addendum: 11/19/18 at [address] Amended: Links added.
--- NOTE | 2018-11-19 18:15 | NUR ---
Patient in room ICU 2042. I have received report from Jackie BOWER and had the opportunity to ask questions and assume patient care.
--- NOTE | 2018-11-19 18:24 | NUR ---
Report given to Sabra BOWER. Addendum: 11/19/18 at 1825 by Jackie Merino RN Amended: Links added.
[2018-11-19] MEDS ORDERED: amiodarone 200mg tablet PO SCH (20:00)
[2018-11-19] MEDS: insulin glargine (Lantus) pen - multi-dose SQ SCH (20:58)
[2018-11-20] VITALS (16 sets, daily range): BP systolic 105–148; BP diastolic 63–77
[2018-11-20 06:19] LABS: BASOPHILS % (AUTO) 0.2 % (0-1); EOSINOPHILS # (AUTO) 0.1 X10'3 (0-0.9); EOSINOPHILS % (AUTO) 1.2 % (0-6); HEMATOCRIT 33.7 % (42.0-52.0); HEMOGLOBIN 11.1 g/dl (14.0-17.9); LYMPHOCYTES # (AUTO) 0.9 X10'3 (1.1-4.8); LYMPHOCYTES % (AUTO) 14.2 % (21-51); MEAN CORPUSCULAR VOLUME 93.9 FL (78-98); MEAN PLATELET VOLUME 9.5 FL (7.4-10.4); MONOCYTES # (AUTO) 0.7 X10'3 (0-0.9); MONOCYTES % (AUTO) 10.1 % (2-12); NEUTROPHILS # (AUTO) 4.8 X10'3 (1.8-7.7); NEUTROPHILS % (AUTO) 74.3 % (42-75); PLATELET COUNT 85 X10'3 (140-440); RED BLOOD COUNT 3.59 X10'6 (4.70-6.10); RED CELL DISTRIBUTION WIDTH 13.9 % (11.5-14.5); WHITE BLOOD COUNT 6.5 X10'3 (4.5-11.0)
--- NOTE | 2018-11-20 06:19 | NUR ---
Problems reprioritized. Patient report given, questions answered & plan of care reviewed with Jackie BOWER.
[2018-11-20 06:22] LABS: ALBUMIN 2.7 G/DL (3.4-5.0); ANION GAP 10 (8-16); BLOOD UREA NITROGEN 32 MG/DL (7-18); BUN/CREATININE RATIO 27.6 (5.4-32.0); CALCIUM 8.7 MG/DL (8.5-10.1); CHLORIDE 106 MMOL/L (99-107); CREATININE 1.16 MG/DL (0.60-1.10); GLUCOSE 121 MG/DL (70-104); MAGNESIUM 2.4 MG/DL (1.5-2.4); POTASSIUM 4.4 MMOL/L (3.5-5.1); SODIUM 142 MMOL/L (135-145); TOTAL CARBON DIOXIDE 26.4 MMOL/L (24-32); eGFR 61 ML/MIN
--- NOTE | 2018-11-20 06:27 | NUR ---
Patient in room ICU 2042. I have received report from Sabra BOWER and had the opportunity to ask questions and assume patient care. Addendum: 11/20/18 at 0628 by Jackie Merino RN Amended: Links added.
[2018-11-20] MEDS: docusate sod 100mg capsule PO SCH ×2 (07:32→20:23)
[2018-11-20] MEDS: pantoprazole 40mg Tablet.DR PO SCH (07:32)
[2018-11-20] MEDS: allopurinol 300 MG tablet PO SCH (07:32)
[2018-11-20] MEDS: amiodarone 200mg tablet PO SCH ×2 (07:32→20:23)
[2018-11-20] MEDS: metoprolol tartrate 12.5mg (1/2 tablet) PO SCH ×2 (07:32→20:22)
[2018-11-20] MEDS: aspirin 81mg tablet.DR PO SCH (07:32)
[2018-11-20] MEDS: gabapentin 300mg capsule PO SCH (07:32)
[2018-11-20] MEDS: atorvastatin 20mg tablet PO SCH (07:32)
[2018-11-20] MEDS ORDERED: magnesium Cl slow-release 64mg tablet PO PRN (08:05)
[2018-11-20] MEDS ORDERED: potassium Cl 40MEQ/NS 500ml 500 ML IV PRN ×2 (08:05)
[2018-11-20] MEDS ORDERED: magnesium 4gm in 100ml NS 100 ML IV PRN (08:05)
[2018-11-20] MEDS ORDERED: magnesium 2GM in 50ml NS 50 ML IV PRN (08:05)
[2018-11-20] MEDS ORDERED: potassium Cl 20 mEq SR tablet PO PRN ×2 (08:05)
--- NOTE | 2018-11-20 12:44 | NUR ---
Report called to Kyler BOWER on ACCE. Awaiting wheelchair availability to take pt. upstairs.
--- NOTE | 2018-11-20 13:06 | NUR ---
Pt.to room 308 via w/c with all belongings.
--- NOTE | 2018-11-20 18:10 | NUR ---
Orienteer documentation: I have reviewed and agree with all interventions, assessments performed and documented by Abena BOWER.
--- NOTE | 2018-11-20 18:17 | NUR ---
Problems reprioritized. Patient report given, questions answered & plan of care reviewed with SATHISH Walker.
[2018-11-20] MEDS: magnesium Cl slow-release 64mg tablet PO SCH (20:00)
[2018-11-20] MEDS: potassium Cl 20 mEq SR tablet PO SCH (20:00)
[2018-11-20] MEDS: HYDROchlorothiazide 25mg tablet PO SCH (21:26)
[2018-11-20] MEDS: losartan 50mg tablet PO SCH (21:26)
[2018-11-21 02:00] VITALS: BP 136/61
--- NOTE | 2018-11-21 06:00 | NUR ---
Patient in room MED 308. I have received report from SATHISH Walker and had the opportunity to ask questions and assume patient care.
--- NOTE | 2018-11-21 06:12 | NUR ---
Problems reprioritized. Patient report given, questions answered & plan of care reviewed with Kyler BOWER.
--- NOTE | 2018-11-21 06:15 | NUR ---
Patient in room MED 308. I have received report from SATHISH Kraft and had the opportunity to ask questions and assume patient care.
[2018-11-21 06:19] LABS: BASOPHILS % (AUTO) 0.3 % (0-1); EOSINOPHILS # (AUTO) 0.1 X10'3 (0-0.9); EOSINOPHILS % (AUTO) 2.1 % (0-6); LYMPHOCYTES # (AUTO) 0.8 X10'3 (1.1-4.8); LYMPHOCYTES % (AUTO) 12.5 % (21-51); MEAN CORPUSCULAR HEMOGLOBIN 30.4 PG (27.0-31.0); MEAN CORPUSCULAR HGB CONC 33.2 % (33.0-36.5); MEAN CORPUSCULAR VOLUME 91.6 FL (78-98); MEAN PLATELET VOLUME 9.1 FL (7.4-10.4); MONOCYTES # (AUTO) 0.8 X10'3 (0-0.9); MONOCYTES % (AUTO) 12.4 % (2-12); NEUTROPHILS % (AUTO) 72.7 % (42-75); PLATELET COUNT 92 X10'3 (140-440); RED BLOOD COUNT 3.94 X10'6 (4.70-6.10); RED CELL DISTRIBUTION WIDTH 13.6 % (11.5-14.5); WHITE BLOOD COUNT 6.7 X10'3 (4.5-11.0)
[2018-11-21 06:28] LABS: ALBUMIN 2.8 G/DL (3.4-5.0); ANION GAP 8 (8-16); BLOOD UREA NITROGEN 24 MG/DL (7-18); BUN/CREATININE RATIO 20.5 (5.4-32.0); CALCIUM 8.8 MG/DL (8.5-10.1); CHLORIDE 107 MMOL/L (99-107); CREATININE 1.17 MG/DL (0.60-1.10); GLUCOSE 125 MG/DL (70-104); MAGNESIUM 2.3 MG/DL (1.5-2.4); POTASSIUM 4.6 MMOL/L (3.5-5.1); SODIUM 140 MMOL/L (135-145); TOTAL CARBON DIOXIDE 25.4 MMOL/L (24-32); eGFR 60 ML/MIN
[2018-11-21 07:00] VITALS: BP 149/58
[2018-11-21] MEDS: K and/or MAG REPLACEMENT MC SCH (07:08)
[2018-11-21] MEDS: magnesium Cl slow-release 64mg tablet PO SCH ×2 (07:10→18:37)
[2018-11-21] MEDS: potassium Cl 20 mEq SR tablet PO SCH ×2 (07:10→18:37)
[2018-11-21] MEDS: pantoprazole 40mg Tablet.DR PO SCH (07:44)
[2018-11-21] MEDS: docusate sod 100mg capsule PO SCH ×2 (07:45→19:06)
[2018-11-21] MEDS: amiodarone 200mg tablet PO SCH ×2 (07:45→19:07)
[2018-11-21] MEDS: metoprolol tartrate 12.5mg (1/2 tablet) PO SCH ×2 (07:46→19:07)
[2018-11-21] MEDS: atorvastatin 20mg tablet PO SCH (07:46)
[2018-11-21] MEDS: allopurinol 300 MG tablet PO SCH (07:47)
[2018-11-21] MEDS: gabapentin 300mg capsule PO SCH (07:48)
[2018-11-21] MEDS: aspirin 81mg tablet.DR PO SCH (07:48)
[2018-11-21] MEDS ORDERED: magnesium citrate 296ml oral solution PO ONE (08:15)
[2018-11-21 12:54] VITALS: BP 129/62
[2018-11-21 15:00] VITALS: BP 145/70
--- NOTE | 2018-11-21 17:39 | NUR ---
Orienteer documentation: I have reviewed and agree with all interventions, assessments performed and documented by Abena BOWER.
--- NOTE | 2018-11-21 18:30 | NUR ---
Patient in room MED 308. I have received report from SATHISH Kraft and had the opportunity to ask questions and assume patient care.
[2018-11-21 19:00] VITALS: BP 136/69
[2018-11-21] MEDS: HYDROchlorothiazide 25mg tablet PO SCH (20:30)
[2018-11-21] MEDS: losartan 50mg tablet PO SCH (20:30)
[2018-11-21 23:00] VITALS: BP 137/61
[2018-11-22] VITALS (21 sets, daily range): BP systolic 117–154; BP diastolic 59–92
--- NOTE | 2018-11-22 01:35 | NUR ---
Converted to a-fib Called Dr. Roque that patient has converted to a-fib around 0100, HR 110-120s. BP 117/74. Patient on amiodarone BID 200mg PO and metoprolol BID 12.5mg PO. K=4.6, Mg=2.3 Dr. Roque ordered start patient on standard set of amiodarone loading dose and maintenance drip.
[2018-11-22] MEDS ORDERED: amiodarone/D5 360MG/200ML BAG 200 ML IV SCH (01:38)
[2018-11-22] MEDS ORDERED: amiodarone 150mg/dext, iso-os 100 ML IV ONE ×2 (01:40→07:55)
--- NOTE | 2018-11-22 02:15 | NUR ---
Converted back to sinus rhythm Called Dr. Roque that patient has converted back to sinus rhythm. HR 64, BP 117/74. Dr. Roque ordered to not start patient on amiodarone drip as ordered previously. Will continue to monitor.
[2018-11-22 06:09] LABS: BASOPHILS % (AUTO) 0.5 % (0-1); EOSINOPHILS # (AUTO) 0.2 X10'3 (0-0.9); HEMATOCRIT 33.3 % (42.0-52.0); HEMOGLOBIN 11.2 g/dl (14.0-17.9); LYMPHOCYTES % (AUTO) 15.7 % (21-51); MEAN CORPUSCULAR HEMOGLOBIN 30.7 PG (27.0-31.0); MEAN CORPUSCULAR HGB CONC 33.6 % (33.0-36.5); MEAN CORPUSCULAR VOLUME 91.4 FL (78-98); MEAN PLATELET VOLUME 9.5 FL (7.4-10.4); MONOCYTES # (AUTO) 0.7 X10'3 (0-0.9); MONOCYTES % (AUTO) 11.7 % (2-12); NEUTROPHILS # (AUTO) 4.4 X10'3 (1.8-7.7); NEUTROPHILS % (AUTO) 69.1 % (42-75); PLATELET COUNT 98 X10'3 (140-440); RED BLOOD COUNT 3.64 X10'6 (4.70-6.10); RED CELL DISTRIBUTION WIDTH 14.5 % (11.5-14.5); WHITE BLOOD COUNT 6.3 X10'3 (4.5-11.0)
[2018-11-22 06:22] LABS: ALBUMIN 2.6 G/DL (3.4-5.0); ANION GAP 8 (8-16); BLOOD UREA NITROGEN 25 MG/DL (7-18); BUN/CREATININE RATIO 19.2 (5.4-32.0); CALCIUM 8.6 MG/DL (8.5-10.1); CHLORIDE 107 MMOL/L (99-107); GLUCOSE 120 MG/DL (70-104); MAGNESIUM 2.5 MG/DL (1.5-2.4); POTASSIUM 4.6 MMOL/L (3.5-5.1); SODIUM 140 MMOL/L (135-145); TOTAL CARBON DIOXIDE 25.1 MMOL/L (24-32); eGFR 53 ML/MIN
--- NOTE | 2018-11-22 06:26 | NUR ---
Problems reprioritized. Patient report given, questions answered & plan of care reviewed with SATHISH Ward.
--- NOTE | 2018-11-22 06:28 | NUR ---
Patient in room MED 308. I have received report from Krunal BOWER and had the opportunity to ask questions and assume patient care.
[2018-11-22] MEDS: allopurinol 300 MG tablet PO SCH (07:34)
[2018-11-22] MEDS: pantoprazole 40mg Tablet.DR PO SCH (07:34)
[2018-11-22] MEDS: aspirin 81mg tablet.DR PO SCH (07:34)
[2018-11-22] MEDS: amiodarone 200mg tablet PO SCH ×2 (07:34→20:54)
[2018-11-22] MEDS: gabapentin 300mg capsule PO SCH (07:35)
[2018-11-22] MEDS: metoprolol tartrate 12.5mg (1/2 tablet) PO SCH ×2 (07:35→20:55)
[2018-11-22] MEDS: atorvastatin 20mg tablet PO SCH (07:35)
[2018-11-22] MEDS: K and/or MAG REPLACEMENT MC SCH (07:38)
[2018-11-22] MEDS: potassium Cl 20 mEq SR tablet PO SCH ×2 (07:39→18:51)
[2018-11-22] MEDS: magnesium Cl slow-release 64mg tablet PO SCH ×2 (07:39→18:51)
[2018-11-22] MEDS: docusate sod 100mg capsule PO SCH ×2 (07:39→20:55)
--- NOTE | 2018-11-22 07:50 | NUR ---
At approximately 0725 when getting patient out of bed and into his chair, the patient went into afib with a rate in the 115s. Called and notified Ari Sibley, who ordered amiodarone bolus dose followed by drip. He stated that they would be up shortly to assess the patient as well.
[2018-11-22] MEDS ORDERED: furosemide 40mg/4ml inj IV ONE (08:15)
--- NOTE | 2018-11-22 08:15 | NUR ---
Ari Sibley and Beto Tejada at bedside, Dr wheeler present at nurse's station as well.
[2018-11-22] MEDS: amiodarone/D5 360MG/200ML BAG 200 ML IV SCH ×3 (08:36→20:02)
--- NOTE | 2018-11-22 09:00 | NUR ---
Patient converted back to sinus rhythm. Notified Ari Sibley. He stated to continue the amiodarone drip for now, but may need to discontinue if heart rate drops below 50. Will continue to monitor patient closely.
--- NOTE | 2018-11-22 14:00 | NUR ---
Patient went back into Afib around 1330 while ambulating with PT. Notified Ari Sibley.
--- NOTE | 2018-11-22 15:00 | NUR ---
Notified Ari Sibley that patient is back in sinus rhythm. Asked him if they want to be notified every time patient jumps into a fib at this point. He stated that since the patient is already on the amiodarone drip, there is no sense in calling them every time, but to notify them of any major concerns such as heart rate getting too low. Continue amiodarone drip overnight.
[2018-11-22 15:28] LABS: ALBUMIN 2.7 G/DL (3.4-5.0); ANION GAP 7 (8-16); BLOOD UREA NITROGEN 27 MG/DL (7-18); BUN/CREATININE RATIO 19.1 (5.4-32.0); CALCIUM 8.9 MG/DL (8.5-10.1); CHLORIDE 103 MMOL/L (99-107); CREATININE 1.41 MG/DL (0.60-1.10); GLUCOSE 148 MG/DL (70-104); POTASSIUM 4.1 MMOL/L (3.5-5.1); SODIUM 138 MMOL/L (135-145); TOTAL CARBON DIOXIDE 27.8 MMOL/L (24-32); eGFR 48 ML/MIN
[2018-11-22 16:17] LABS: MAGNESIUM 2.3 MG/DL (1.5-2.4)
--- NOTE | 2018-11-22 18:37 | NUR ---
Problems reprioritized. Patient report given, questions answered & plan of care reviewed with Krunal BOWER.
[2018-11-22] MEDS: HYDROchlorothiazide 25mg tablet PO SCH ×2 (20:54→22:41)
[2018-11-22] MEDS: losartan 50mg tablet PO SCH ×2 (20:55→22:41)
[2018-11-23 01:00] VITALS: BP 139/66
[2018-11-23] MEDS: amiodarone/D5 360MG/200ML BAG 200 ML IV SCH ×3 (02:38→05:26)
[2018-11-23 03:00] VITALS: BP 129/61
[2018-11-23 05:00] VITALS: BP 129/59
--- NOTE | 2018-11-23 06:15 | NUR ---
Patient in room MED 308. I have received report from Krunal and had the opportunity to ask questions and assume patient care.
--- NOTE | 2018-11-23 06:28 | NUR ---
Problems reprioritized. Patient report given, questions answered & plan of care reviewed with SATHISH Mann.
[2018-11-23 06:46] LABS: BASOPHILS % (AUTO) 0.2 % (0-1); EOSINOPHILS # (AUTO) 0.4 X10'3 (0-0.9); EOSINOPHILS % (AUTO) 5.4 % (0-6); HEMATOCRIT 34.3 % (42.0-52.0); HEMOGLOBIN 11.3 g/dl (14.0-17.9); LYMPHOCYTES % (AUTO) 13.9 % (21-51); MEAN CORPUSCULAR HEMOGLOBIN 30.5 PG (27.0-31.0); MEAN CORPUSCULAR HGB CONC 32.9 % (33.0-36.5); MEAN CORPUSCULAR VOLUME 92.6 FL (78-98); MEAN PLATELET VOLUME 9.1 FL (7.4-10.4); MONOCYTES # (AUTO) 0.7 X10'3 (0-0.9); MONOCYTES % (AUTO) 9.6 % (2-12); NEUTROPHILS # (AUTO) 5.1 X10'3 (1.8-7.7); NEUTROPHILS % (AUTO) 70.9 % (42-75); PLATELET COUNT 125 X10'3 (140-440); RED CELL DISTRIBUTION WIDTH 14.8 % (11.5-14.5); WHITE BLOOD COUNT 7.1 X10'3 (4.5-11.0)
[2018-11-23 06:52] LABS: ALBUMIN 2.6 G/DL (3.4-5.0); ANION GAP 6 (8-16); BLOOD UREA NITROGEN 27 MG/DL (7-18); BUN/CREATININE RATIO 18.9 (5.4-32.0); CALCIUM 8.7 MG/DL (8.5-10.1); CHLORIDE 105 MMOL/L (99-107); CREATININE 1.43 MG/DL (0.60-1.10); GLUCOSE 127 MG/DL (70-104); MAGNESIUM 2.2 MG/DL (1.5-2.4); POTASSIUM 4.6 MMOL/L (3.5-5.1); SODIUM 140 MMOL/L (135-145); TOTAL CARBON DIOXIDE 28.6 MMOL/L (24-32); eGFR 48 ML/MIN
[2018-11-23 07:08] VITALS: BP 136/59
[2018-11-23] MEDS: gabapentin 300mg capsule PO SCH (07:50)
[2018-11-23] MEDS: allopurinol 300 MG tablet PO SCH (07:50)
[2018-11-23] MEDS: pantoprazole 40mg Tablet.DR PO SCH (07:50)
[2018-11-23] MEDS: amiodarone 200mg tablet PO SCH (07:50)
[2018-11-23] MEDS: metoprolol tartrate 12.5mg (1/2 tablet) PO SCH (07:51)
[2018-11-23] MEDS: docusate sod 100mg capsule PO SCH (07:51)
[2018-11-23] MEDS: aspirin 81mg tablet.DR PO SCH (07:52)
[2018-11-23] MEDS: atorvastatin 20mg tablet PO SCH (07:52)
[2018-11-23] MEDS: potassium Cl 20 mEq SR tablet PO SCH (07:55)
[2018-11-23] MEDS: K and/or MAG REPLACEMENT MC SCH (07:55)
[2018-11-23] MEDS: magnesium Cl slow-release 64mg tablet PO SCH (07:56)
--- NOTE | 2018-11-23 10:54 | NUR ---
PAGED CM FOR REHAB "CAN YOU CALL REGARDING REHAB FOR [place], [place]? THANK YOU, TIERA SHETH [phone]"
[2018-11-23 11:00] VITALS: BP 118/52
--- NOTE | 2018-11-23 14:30 | NUR ---
The pt was given discharge instructions. He, his , and daughter all stated understanding and agreed with POC. Pt IV taken out cannula intact. No s/s of complications. [facility] arrived to take pt to [facility]. Pt has no s/s of distress and has remained stable.
--- NOTE | 2018-11-23 16:37 | NUR ---
Per note pt is in and out of A.Fib yesterday and through last night. PO intake is 75-100%. LBM 11/22. notes pt may be discharged today. Will continue to monitor. Recommendations: 1) Continue with NCS diet 2) Monitor need for additional bowel care 3) Wt per rx Addendum: 11/23/18 at [address] Amended: Links added. Addendum: 11/23/18 at [address] I have reviewed and agree with note by Tensile Tester. Tori Dougherty RD
[2018-11-23] MEDS ORDERED: apixaban 5mg tablet PO SCH (20:00)
== END 2018-11-23 14:40 | DRG 216 ==
LOC: SSTAY O 14:25 → PCU 3S 20:55 → SSTAY O 11-15 14:00 → PCU 3S 11-15 14:03 → MED 3N 11-15 14:31 → ICU 2S 11-16 11:50 → MED 3N 11-20 13:18
PROVIDERS: ADMIT Internal Medicine Interventional Cardiology; ATTEND Thoracic Surgery (Cardiothoracic Vascular Surgery)
PROC: 4A023N7 Measurement of Cardiac Sampling and Pressure, Left Heart, Percutaneous Approach (ICD-10-PCS; principal; 2018-11-14)
PROC: B2111ZZ Fluoroscopy of Multiple Coronary Arteries using Low Osmolar Contrast (ICD-10-PCS; 2018-11-14)
PROC: B2151ZZ Fluoroscopy of Left Heart using Low Osmolar Contrast (ICD-10-PCS; 2018-11-14)
PROC: 02RF08Z Replacement of Aortic Valve with Zooplastic Tissue, Open Approach (ICD-10-PCS; 2018-11-16)
PROC: 02CX0ZZ Extirpation of Matter from Thoracic Aorta, Ascending/Arch, Open Approach (ICD-10-PCS; 2018-11-16)
PROC: 06BQ4ZZ Excision of Left Saphenous Vein, Percutaneous Endoscopic Approach (ICD-10-PCS; 2018-11-16)
PROC: 021209W Bypass Coronary Artery, Three Arteries from Aorta with Autologous Venous Tissue, Open Approach (ICD-10-PCS; 2018-11-16)
PROC: 30233M1 Transfusion of Nonautologous Plasma Cryoprecipitate into Peripheral Vein, Percutaneous Approach (ICD-10-PCS; 2018-11-16)
PROC: 30233R1 Transfusion of Nonautologous Platelets into Peripheral Vein, Percutaneous Approach (ICD-10-PCS; 2018-11-16)
PROC: 5A1221Z Performance of Cardiac Output, Continuous (ICD-10-PCS; 2018-11-16)
PROC: B24BZZ4 Ultrasonography of Heart with Aorta, Transesophageal (ICD-10-PCS; 2018-11-16)
PROC: 4A133B3 Monitoring of Arterial Pressure, Pulmonary, Percutaneous Approach (ICD-10-PCS; 2018-11-16)
PROC: 02HQ32Z Insertion of Monitoring Device into Right Pulmonary Artery, Percutaneous Approach (ICD-10-PCS; 2018-11-16)
PROC: 02HV33Z Insertion of Infusion Device into Superior Vena Cava, Percutaneous Approach (ICD-10-PCS; 2018-11-16)
DX: I35.0 Nonrheumatic aortic (valve) stenosis (principal); I50.31 Acute diastolic (congestive) heart failure; I48.92 Unspecified atrial flutter; I13.0 Hypertensive heart and chronic kidney disease with heart failure and stage 1 through stage 4 chronic kidney disease, or unspecified chronic kidney disease; E66.01 Morbid (severe) obesity due to excess calories; I25.10 Atherosclerotic heart disease of native coronary artery without angina pectoris; Z68.35 Body mass index [BMI] 35.0-35.9, adult; I48.91 Unspecified atrial fibrillation; N18.9 Chronic kidney disease, unspecified; E11.22 Type 2 diabetes mellitus with diabetic chronic kidney disease; G47.33 Obstructive sleep apnea (adult) (pediatric); I49.5 Sick sinus syndrome; I65.23 Occlusion and stenosis of bilateral carotid arteries; E78.5 Hyperlipidemia, unspecified; K59.00 Constipation, unspecified; G89.29 Other chronic pain; N28.89 Other specified disorders of kidney and ureter; E78.00 Pure hypercholesterolemia, unspecified; J44.9 Chronic obstructive pulmonary disease, unspecified; K21.9 Gastro-esophageal reflux disease without esophagitis; I70.0 Atherosclerosis of aorta; Z96.651 Presence of right artificial knee joint; Z99.81 Dependence on supplemental oxygen; Z88.0 Allergy status to penicillin; Z79.899 Other long term (current) drug therapy; Z85.528 Personal history of other malignant neoplasm of kidney; Z87.891 Personal history of nicotine dependence
CPT/HCPCS: 0232T; 93306; 93312; 93325; 93458; 36415; 36600; 71045; 80048; 80053; 80061; 81003; 82330; 82435; 82565; 82803; 82947; 82948; 83036; 83735; 84100; 84132; 84295; 85018; 85025; 85027; 85347; 85384; 85610; 85730; 86885; 86900; 86901; 86920; 87070; 88300; 93005; 93880; 93971; 94002; 94003; 94010; 94667; 94668; 94760; 97110; 97116; 97162; 97530; 99152; A4620; A6257; A6258; A6402; A6449; A7000; A7048; C1751; C1769; G0378; J0282; J0690; J1644; J1815; J1940; J2001; J2060; J2150; J2250; J2270; J2370; J2405; J2440; J2704; J2720; J2930; J3010; J3370; J3475; J3480; J3490; J7030; J7120; P9012; P9035; P9047; Q0163; Q9967

== ENCOUNTER 2019-08-21 13:25 | Inpatient (IN) | payer MEDICARE ==
[~2019-08-21] VITALS: Ht 182.9 cm; Wt 104.0 kg
[~2019-08-21 13:25] MED LIST: ALBU8.5H8 INH; ALLO100T PO; AMLO5TAB PO; ATOR20TA66 PO; BUDE10.22 INH; EVOL140S IM; FURO-150 PO; GABA-532 PO; LACT1CAP26 PO; LEVO250T58 PO; LORA10TA7 PO; METO25TA6 PO; OMEP20CA11 PO; RIVA20TA PO
[2019-08-21] MEDS ORDERED: methylPREDNISolone sod succ 125mg/2ml vial IV ONE (13:50)
[2019-08-21] MEDS ORDERED: ipratropium/albuterol 3ml nebule NEB ONE (13:50)
[2019-08-21 14:10] LABS: PARTIAL THROMBOPLASTIN TIME 30 SECONDS (22-32)
[2019-08-21 14:13] LABS: ALANINE AMINOTRANSFERASE 17 U/L (12-78); ALBUMIN/GLOBULIN RATIO 0.7 (1.1-1.5); ALKALINE PHOSPHATASE 80 IU/L (46-116); ANION GAP 7 (8-16); ASPARTATE AMINO TRANSFERASE 13 U/L (10-37); BILIRUBIN,TOTAL 0.8 MG/DL (0.1-1.0); BLOOD UREA NITROGEN 26 MG/DL (7-18); BUN/CREATININE RATIO 11.8 (5.4-32.0); CALCIUM 9.1 MG/DL (8.5-10.1); CHLORIDE 107 MMOL/L (99-107); CREATININE 2.21 MG/DL (0.60-1.10); GLUCOSE 132 MG/DL (70-104); POTASSIUM 4.6 MMOL/L (3.5-5.1); SODIUM 139 MMOL/L (135-145); TOTAL CARBON DIOXIDE 25.2 MMOL/L (24-32); TOTAL PROTEIN 7.5 G/DL (6.4-8.2); eGFR 29 ML/MIN
[2019-08-21 14:29] LABS: BASOPHILS # (AUTO) 0.1 X10'3 (0-0.2); BASOPHILS % (AUTO) 0.8 % (0-1); EOSINOPHILS # (AUTO) 0.2 X10'3 (0-0.9); EOSINOPHILS % (AUTO) 2.8 % (0-6); HEMATOCRIT 36.6 % (42.0-52.0); HEMOGLOBIN 11.2 g/dl (14.0-17.9); LYMPHOCYTES # (AUTO) 0.8 X10'3 (1.1-4.8); LYMPHOCYTES % (AUTO) 11.9 % (21-51); MEAN CORPUSCULAR HEMOGLOBIN 23.1 PG (27.0-31.0); MEAN CORPUSCULAR HGB CONC 30.6 g/dL (33.0-36.5); MEAN CORPUSCULAR VOLUME 75.5 FL (78-98); MEAN PLATELET VOLUME 7.8 FL (7.4-10.4); MONOCYTES # (AUTO) 0.6 X10'3 (0-0.9); NEUTROPHILS # (AUTO) 4.7 X10'3 (1.8-7.7); NEUTROPHILS % (AUTO) 75.5 % (42-75); PLATELET COUNT 226 X10'3 (140-440); RED BLOOD COUNT 4.85 X10'6 (4.70-6.10); WHITE BLOOD COUNT 6.3 X10'3 (4.5-11.0)
[2019-08-21 14:30] LABS: ANISOCYTOSIS 2+; MICROCYTOSIS 1+; PLATELET ESTIMATE NORMAL
[2019-08-21] MEDS ORDERED: furosemide 10 MG/1 ML 10ml inj IV ONE (15:25)
[2019-08-21] MEDS ORDERED: furosemide 40mg/4ml inj IV ONE (15:25)
[2019-08-21] MEDS ORDERED: ALBU8.5H8 INH (15:41)
[2019-08-21] MEDS ORDERED: ALLO300T8 PO (15:41)
[2019-08-21] MEDS ORDERED: APIX5TAB3 PO (15:43)
[2019-08-21] MEDS ORDERED: potassium Cl 20 mEq SR tablet PO PRN ×2 (15:45)
[2019-08-21] MEDS ORDERED: ipratropium/albuterol 3ml nebule NEB PRN (15:45)
[2019-08-21] MEDS ORDERED: magnesium Cl slow-release 64mg tablet PO PRN (15:45)
[2019-08-21] MEDS ORDERED: magnesium 2GM in 50ml NS 50 ML IV PRN (15:45)
[2019-08-21] MEDS ORDERED: magnesium 4gm in 100ml NS 100 ML IV PRN (15:45)
[2019-08-21] MEDS ORDERED: potassium CL 10mEq/100ml bag 100 ML IV PRN ×2 (15:45)
[2019-08-21] MEDS ORDERED: ondansetron/PF 4mg/2ml inj IV PRN (15:45)
[2019-08-21] MEDS ORDERED: mag hydrox/Alum hydrox/simeth 30ml oral suspension PO PRN (15:45)
[2019-08-21] MEDS ORDERED: nitroGLYCERIN 0.4mg SUBLingual tab SL PRN (15:45)
[2019-08-21] MEDS ORDERED: acetaminophen 325mg tablet PO PRN ×2 (15:45)
[2019-08-21] MEDS ORDERED: magnesium hydroxide 30ml (MOM) UD suspension PO PRN (15:45)
[2019-08-21] MEDS ORDERED: ATOR10TA70 PO (15:48)
[2019-08-21] MEDS ORDERED: ATRNS PO (15:51)
[2019-08-21] MEDS ORDERED: TIOT4MIS3 PO ×3 (16:58→18:11)
[2019-08-21] MEDS ORDERED: levoFLOXACIN-Levaquin 500mg/D5 100 ML IV SCH (18:00)
[2019-08-21] MEDS ORDERED: EVOL140P PO (18:06)
[2019-08-21] MEDS ORDERED: EVOL140P IM (18:11)
[2019-08-21] MEDS ORDERED: levoFLOXACIN-Levaquin 500mg/D5 100 ML IV ONE (18:58)
[2019-08-21] MEDS: ipratropium/albuterol 3ml nebule NEB SCH ×2 (19:10→23:04)
--- NOTE | 2019-08-21 19:50 | NUR ---
I received report from Lindsay, ED RN.2030: Patient arrived with transport conductor and nurse via gurney. Belongings in hand. Assesment was done and 2 RN skin assessment were done once settled into bed.
[2019-08-21 20:40] VITALS: BP 186/66
[2019-08-21] MEDS: metoprolol tartrate 12.5mg (1/2 tablet) PO SCH (20:51)
[2019-08-21] MEDS: lactobacillus rhamnosus 10,000 MMU CELLS/CAPSULE PO SCH (20:53)
[2019-08-21] MEDS: gabapentin 300mg capsule PO SCH (20:53)
[2019-08-21] MEDS: apixaban 5mg tablet PO SCH (20:53)
[2019-08-21] MEDS: furosemide 20 MG/2 ML vial IV SCH (20:54)
[2019-08-22] VITALS: BP 159/66
[2019-08-22] MEDS: ipratropium/albuterol 3ml nebule NEB SCH ×6 (03:15→23:12)
[2019-08-22 05:59] LABS: BASOPHILS % (AUTO) 0.1 % (0-1); EOSINOPHILS % (AUTO) 0 % (0-6); HEMATOCRIT 34.7 % (42.0-52.0); HEMOGLOBIN 10.7 g/dl (14.0-17.9); LYMPHOCYTES # (AUTO) 0.3 X10'3 (1.1-4.8); LYMPHOCYTES % (AUTO) 6.8 % (21-51); MEAN CORPUSCULAR HEMOGLOBIN 23.2 PG (27.0-31.0); MEAN CORPUSCULAR HGB CONC 30.7 g/dL (33.0-36.5); MEAN CORPUSCULAR VOLUME 75.5 FL (78-98); MEAN PLATELET VOLUME 8.2 FL (7.4-10.4); MONOCYTES # (AUTO) 0.1 X10'3 (0-0.9); MONOCYTES % (AUTO) 3.2 % (2-12); NEUTROPHILS # (AUTO) 3.4 X10'3 (1.8-7.7); NEUTROPHILS % (AUTO) 89.9 % (42-75); PLATELET COUNT 196 X10'3 (140-440); WHITE BLOOD COUNT 3.7 X10'3 (4.5-11.0)
[2019-08-22 06:06] LABS: ALBUMIN 2.9 G/DL (3.4-5.0); ANION GAP 12 (8-16); BLOOD UREA NITROGEN 33 MG/DL (7-18); BUN/CREATININE RATIO 13.3 (5.4-32.0); CALCIUM 9.2 MG/DL (8.5-10.1); CHLORIDE 108 MMOL/L (99-107); CREATININE 2.49 MG/DL (0.60-1.10); GLUCOSE 224 MG/DL (70-104); MAGNESIUM 1.9 MG/DL (1.5-2.4); POTASSIUM 4.4 MMOL/L (3.5-5.1); SODIUM 144 MMOL/L (135-145); TOTAL CARBON DIOXIDE 24.5 MMOL/L (24-32); eGFR 25 ML/MIN
--- NOTE | 2019-08-22 06:10 | NUR ---
Problems reprioritized. Patient report given, questions answered & plan of care reviewed with SATHISH Partida.
[2019-08-22 07:10] LABS: ANISOCYTOSIS 2+; MICROCYTOSIS 1+; PLATELET ESTIMATE NORMAL
[2019-08-22] MEDS: gabapentin 300mg capsule PO SCH ×2 (07:43→20:09)
[2019-08-22] MEDS: metoprolol tartrate 12.5mg (1/2 tablet) PO SCH ×2 (07:43→20:10)
[2019-08-22] MEDS: prednisone 10mg tablet PO SCH (07:43)
[2019-08-22] MEDS: pantoprazole 40mg Tablet.DR PO SCH (07:43)
[2019-08-22] MEDS: loratadine 10mg tablet PO SCH (07:43)
[2019-08-22] MEDS: furosemide 20 MG/2 ML vial IV SCH ×2 (07:44→20:03)
[2019-08-22] MEDS: lactobacillus rhamnosus 10,000 MMU CELLS/CAPSULE PO SCH ×2 (07:44→20:09)
[2019-08-22] MEDS: atorvastatin 10mg tablet PO SCH (07:44)
[2019-08-22] MEDS: levoFLOXACIN-Levaquin 250mg/D5 50 ML IV SCH (07:52)
[2019-08-22 07:56] LABS: HEMOGLOBIN A1C 6.1 % (4.5-6.2)
[2019-08-22 08:00] VITALS: BP 157/58
[2019-08-22] MEDS: allopurinol 300 MG tablet PO SCH (08:00)
[2019-08-22] MEDS: apixaban 5mg tablet PO SCH ×3 (08:00→20:09)
[2019-08-22] MEDS: K and/or MAG REPLACEMENT MC SCH (08:04)
--- NOTE | 2019-08-22 09:19 | NUR ---
Gloria Chandra - pt has DM2, diet manage at home. A1C 6.1. BG 177 @ 0708 this AM before breakfast. Place pt on Hyperglycemic protocol? Addendum: 08/22/19 at 0921 by Helga Palmer RN MD cole ok to place pt on hyperglycemic protocol.
[2019-08-22] MEDS ORDERED: dextrose 50%-water 50ml dispensing syringe IV PRN ×2 (09:25)
[2019-08-22] MEDS ORDERED: MESSAGE TO PHARMACY PO ONE (09:25)
[2019-08-22] MEDS ORDERED: dextrose ORAL solution 15 GM/59 ML bottle PO PRN ×2 (09:25)
[2019-08-22] MEDS ORDERED: glucagon, human recombinant 1mg kit SUBCUT PRN (09:25)
[2019-08-22] MEDS ORDERED: APIX5TAB5 PO (09:39)
[2019-08-22] MEDS ORDERED: APIX2.5T PO (09:41)
[2019-08-22 12:00] VITALS: BP 151/66
[2019-08-22] MEDS: insulin Lispro (HumaLOG) vial - multi-dose SQ SCH (18:13)
--- NOTE | 2019-08-22 18:26 | NUR ---
Problems reprioritized. Patient report given, questions answered & plan of care reviewed with SATHISH Napier.
--- NOTE | 2019-08-22 18:30 | NUR ---
Patient in room LEONARDO 356. I have received report from FRANCINE BOWER and had the opportunity to ask questions and assume patient care.
[2019-08-22 20:00] VITALS: BP 142/50
[2019-08-22] MEDS: insulin glargine (Lantus) pen - multi-dose SQ SCH (21:38)
[2019-08-23] VITALS: BP 147/55
[2019-08-23] MEDS: ipratropium/albuterol 3ml nebule NEB SCH ×5 (03:29→20:24)
[2019-08-23 05:54] LABS: BASOPHILS % (AUTO) 0.1 % (0-1); EOSINOPHILS % (AUTO) 0 % (0-6); HEMATOCRIT 34.3 % (42.0-52.0); HEMOGLOBIN 10.7 g/dl (14.0-17.9); LYMPHOCYTES # (AUTO) 0.4 X10'3 (1.1-4.8); LYMPHOCYTES % (AUTO) 5.2 % (21-51); MEAN CORPUSCULAR HEMOGLOBIN 23.3 PG (27.0-31.0); MEAN CORPUSCULAR HGB CONC 31.2 g/dL (33.0-36.5); MEAN CORPUSCULAR VOLUME 74.7 FL (78-98); MONOCYTES # (AUTO) 0.4 X10'3 (0-0.9); MONOCYTES % (AUTO) 6.3 % (2-12); NEUTROPHILS # (AUTO) 6.3 X10'3 (1.8-7.7); NEUTROPHILS % (AUTO) 88.4 % (42-75); PLATELET COUNT 210 X10'3 (140-440); RED CELL DISTRIBUTION WIDTH 19.3 % (11.5-14.5); WHITE BLOOD COUNT 7.2 X10'3 (4.5-11.0)
[2019-08-23 05:59] LABS: ANION GAP 10 (8-16); BLOOD UREA NITROGEN 45 MG/DL (7-18); BUN/CREATININE RATIO 17.6 (5.4-32.0); CHLORIDE 107 MMOL/L (99-107); CREATININE 2.56 MG/DL (0.60-1.10); GLUCOSE 151 MG/DL (70-104); POTASSIUM 4.5 MMOL/L (3.5-5.1); SODIUM 143 MMOL/L (135-145); eGFR 24 ML/MIN
--- NOTE | 2019-08-23 06:19 | NUR ---
Problems reprioritized. Patient report given, questions answered & plan of care reviewed with AARTI BOWER.
--- NOTE | 2019-08-23 06:20 | NUR ---
Patient in room LEONARDO 356. I have received report from SATHISH MARIE and had the opportunity to ask questions and assume patient care.
[2019-08-23 06:58] LABS: ANISOCYTOSIS 2+; ELLIPTOCYTES FEW; MICROCYTOSIS 1+; PLATELET ESTIMATE NORMAL; POLYCHROMASIA FEW; SCHISTOCYTES FEW
[2019-08-23 06:59] LABS: HYPOCHROMASIA 1+
[2019-08-23 07:00] VITALS: BP 154/51
[2019-08-23] MEDS: pantoprazole 40mg Tablet.DR PO SCH (07:27)
[2019-08-23] MEDS: apixaban 5mg tablet PO SCH ×2 (07:27→21:08)
[2019-08-23] MEDS: atorvastatin 10mg tablet PO SCH (07:27)
[2019-08-23] MEDS: loratadine 10mg tablet PO SCH (07:27)
[2019-08-23] MEDS: gabapentin 300mg capsule PO SCH ×2 (07:27→21:07)
[2019-08-23] MEDS: levoFLOXACIN-Levaquin 250mg/D5 50 ML IV SCH (07:27)
[2019-08-23] MEDS: metoprolol tartrate 12.5mg (1/2 tablet) PO SCH ×2 (07:27→21:08)
[2019-08-23] MEDS: allopurinol 300 MG tablet PO SCH (07:27)
[2019-08-23] MEDS: prednisone 10mg tablet PO SCH (07:31)
[2019-08-23] MEDS: furosemide 20 MG/2 ML vial IV SCH ×2 (07:31→21:08)
[2019-08-23] MEDS: lactobacillus rhamnosus 10,000 MMU CELLS/CAPSULE PO SCH ×2 (07:31→21:07)
[2019-08-23] MEDS: K and/or MAG REPLACEMENT MC SCH (08:00)
[2019-08-23] MEDS: insulin Lispro (HumaLOG) vial - multi-dose SQ SCH ×3 (09:08→19:05)
--- NOTE | 2019-08-23 16:01 | NUR ---
I have reviewed and agree with all medications administered and interventions performed by [employer] Student Wilder Henning.
--- NOTE | 2019-08-23 18:30 | NUR ---
Problems reprioritized. Patient report given, questions answered & plan of care reviewed with SATHISH POLANCO.
[2019-08-23 20:00] VITALS: BP 131/54
--- NOTE | 2019-08-23 20:30 | NUR ---
Patient's daughter Zina skinner is concern with patient's discharge position. States he came in because of SOB and desats down to the low 80's when he ambulates, and doesn't the back can return home. She would like patient to go home with home health, or to rehab at [facility]. PT steven ordered for tomorrow. Daughter is currently out of state in [place]. Number updated on Nursing SBAR.
[2019-08-23] MEDS: insulin glargine (Lantus) pen - multi-dose SQ SCH (21:18)
[2019-08-24] VITALS: BP 144/56
[2019-08-24] MEDS: ipratropium/albuterol 3ml nebule NEB SCH ×5 (03:50→15:00)
[2019-08-24 05:53] LABS: BASOPHILS % (AUTO) 0 % (0-1); EOSINOPHILS % (AUTO) 0.1 % (0-6); HEMATOCRIT 33.4 % (42.0-52.0); HEMOGLOBIN 10.3 g/dl (14.0-17.9); LYMPHOCYTES # (AUTO) 0.6 X10'3 (1.1-4.8); LYMPHOCYTES % (AUTO) 8.6 % (21-51); MEAN CORPUSCULAR HEMOGLOBIN 23.2 PG (27.0-31.0); MEAN CORPUSCULAR HGB CONC 30.8 g/dL (33.0-36.5); MEAN CORPUSCULAR VOLUME 75.4 FL (78-98); MEAN PLATELET VOLUME 7.9 FL (7.4-10.4); MONOCYTES # (AUTO) 0.5 X10'3 (0-0.9); MONOCYTES % (AUTO) 7.5 % (2-12); NEUTROPHILS % (AUTO) 83.8 % (42-75); PLATELET COUNT 209 X10'3 (140-440); RED BLOOD COUNT 4.43 X10'6 (4.70-6.10); RED CELL DISTRIBUTION WIDTH 19.7 % (11.5-14.5); WHITE BLOOD COUNT 7.1 X10'3 (4.5-11.0)
[2019-08-24 06:01] LABS: ALBUMIN 2.9 G/DL (3.4-5.0); ANION GAP 10 (8-16); BLOOD UREA NITROGEN 49 MG/DL (7-18); CALCIUM 9.2 MG/DL (8.5-10.1); CHLORIDE 107 MMOL/L (99-107); CREATININE 2.72 MG/DL (0.60-1.10); GLUCOSE 110 MG/DL (70-104); MAGNESIUM 2.2 MG/DL (1.5-2.4); SODIUM 144 MMOL/L (135-145); TOTAL CARBON DIOXIDE 26.9 MMOL/L (24-32); eGFR 23 ML/MIN
[2019-08-24 07:24] VITALS: BP 147/43
[2019-08-24] MEDS: loratadine 10mg tablet PO SCH (07:50)
[2019-08-24] MEDS: lactobacillus rhamnosus 10,000 MMU CELLS/CAPSULE PO SCH (07:50)
[2019-08-24] MEDS: allopurinol 300 MG tablet PO SCH (07:50)
[2019-08-24] MEDS: apixaban 5mg tablet PO SCH (07:50)
[2019-08-24] MEDS: atorvastatin 10mg tablet PO SCH (07:50)
[2019-08-24] MEDS: pantoprazole 40mg Tablet.DR PO SCH (07:50)
[2019-08-24] MEDS: gabapentin 300mg capsule PO SCH (07:50)
[2019-08-24] MEDS: metoprolol tartrate 12.5mg (1/2 tablet) PO SCH (07:52)
[2019-08-24] MEDS: levoFLOXACIN-Levaquin 250mg/D5 50 ML IV SCH (07:53)
[2019-08-24] MEDS: K and/or MAG REPLACEMENT MC SCH (08:00)
[2019-08-24] MEDS: prednisone 10mg tablet PO SCH (08:11)
[2019-08-24] MEDS: furosemide 20 MG/2 ML vial IV SCH (08:13)
[2019-08-24] MEDS: insulin Lispro (HumaLOG) vial - multi-dose SQ SCH (09:10)
[2019-08-24 11:24] VITALS: BP 156/65
[2019-08-24] MEDS ORDERED: IPRA3AMP9 NEB (11:48)
[2019-08-24] MEDS ORDERED: PRED10TA PO (11:48)
[2019-08-24] MEDS ORDERED: LEVO500T2 PO (11:48)
[2019-08-24] MEDS ORDERED: FURO20TA4 PO (13:39)
[2019-08-24] MEDS ORDERED: POTA10TA36 PO (13:39)
--- NOTE | 2019-08-24 16:30 | NUR ---
PATIENT DISCHARGED INTO THE CARE OF HIS FAMILY. PATIENT IS AWARE OF MEDICATION CHANGES AND NEW ADDITIONS TO THE MEDICATIONS. PATIENT WILL MAKE FOLLOW UP WITH PRIMARY CARE PHYSICIAN. PATIENT STATED HE HAD ALL OF HIS BELONGINGS AT DISCHARGE AND IV WAS REMOVED AT THIS TIME WELL. CANULA WAS WHOLE AND INTACT AT DISCHARGE. PATIENT SHOWED MINIMAL BLEEDING AT THIS TIME.
== END 2019-08-24 16:50 | disposition home health service (06) | DRG 291 ==
LOC: ER 13:26 → ED HOLD 15:50 → EDBEDREQ 16:34 → SUR 3N 20:30 → CMPBEDREQ 20:46
PROVIDERS: ADMIT Hospitalist; ATTEND Internal Medicine
PROC: 5A09357 Assistance with Respiratory Ventilation, Less than 24 Consecutive Hours, Continuous Positive Airway Pressure (ICD-10-PCS; principal; 2019-08-22)
PROC: 5A09357 Assistance with Respiratory Ventilation, Less than 24 Consecutive Hours, Continuous Positive Airway Pressure (ICD-10-PCS; 2019-08-23)
PROC: 5A09357 Assistance with Respiratory Ventilation, Less than 24 Consecutive Hours, Continuous Positive Airway Pressure (ICD-10-PCS; 2019-08-24)
DX: I50.33 Acute on chronic diastolic (congestive) heart failure (principal); J96.21 Acute and chronic respiratory failure with hypoxia; J44.1 Chronic obstructive pulmonary disease with (acute) exacerbation; I48.20 Chronic atrial fibrillation, unspecified; N18.4 Chronic kidney disease, stage 4 (severe); E11.22 Type 2 diabetes mellitus with diabetic chronic kidney disease; E78.5 Hyperlipidemia, unspecified; E11.42 Type 2 diabetes mellitus with diabetic polyneuropathy; Z60.2 Problems related to living alone; I25.10 Atherosclerotic heart disease of native coronary artery without angina pectoris; I27.20 Pulmonary hypertension, unspecified; M10.9 Gout, unspecified; Z79.01 Long term (current) use of anticoagulants; Z87.891 Personal history of nicotine dependence; Z90.5 Acquired absence of kidney; Z95.1 Presence of aortocoronary bypass graft; Z95.2 Presence of prosthetic heart valve; Z99.81 Dependence on supplemental oxygen; Z79.84 Long term (current) use of oral hypoglycemic drugs; Z88.0 Allergy status to penicillin; Z79.899 Other long term (current) drug therapy
CPT/HCPCS: 36415; 71045; 80048; 80053; 82948; 83036; 83735; 83880; 85025; 85610; 85730; 87081; 93005; 93306; 94640; 94760; 96374; 96375; 97112; 97116; 97161; 97530; 99285; G0378; J1815; J1940; J1956; J2930; J7512

== ENCOUNTER 2020-04-11 22:55 | Inpatient (IN) | payer MEDICARE ==
[~2020-04-11] VITALS: Ht 175.3 cm; Wt 96.7 kg
[~2020-04-11 22:55] MED LIST changes: -ALLO100T PO; -AMLO5TAB PO; +APIX2.5T PO; +ATOR10TA70 PO; -ATOR20TA66 PO; +ATRNS PO; -BUDE10.22 INH; +EVOL140P3 IM; -EVOL140S IM; -FURO-150 PO; -LACT1CAP26 PO; -LEVO250T58 PO; -METO25TA6 PO; -OMEP20CA11 PO; +OMEP20CA15 PO; -RIVA20TA PO
[2020-04-11] MEDS ORDERED: normal saline 1000ML IV soln IV ONE (23:00)
[2020-04-11] MEDS ORDERED: acetaminophen 325mg tablet PO ONE (23:05)
[2020-04-11] MEDS ORDERED: CefTRIAXone 2gm/D5W 50ml 50 ML IV ONE (23:20)
[2020-04-11 23:30] LABS: BASOPHILS % (AUTO) 0.7 % (0-1); EOSINOPHILS # (AUTO) 0.2 X10'3 (0-0.9); EOSINOPHILS % (AUTO) 3.2 % (0-6); HEMATOCRIT 34.6 % (42.0-52.0); HEMOGLOBIN 11.1 g/dl (14.0-17.9); LYMPHOCYTES # (AUTO) 0.7 X10'3 (1.1-4.8); LYMPHOCYTES % (AUTO) 11.7 % (21-51); MEAN CORPUSCULAR HEMOGLOBIN 26.3 PG (27.0-31.0); MEAN CORPUSCULAR VOLUME 82.1 FL (78-98); MEAN PLATELET VOLUME 8.1 FL (7.4-10.4); MONOCYTES # (AUTO) 0.9 X10'3 (0-0.9); MONOCYTES % (AUTO) 14.1 % (2-12); NEUTROPHILS # (AUTO) 4.3 X10'3 (1.8-7.7); NEUTROPHILS % (AUTO) 70.3 % (42-75); PARTIAL THROMBOPLASTIN TIME 34 SECONDS (22-32); PLATELET COUNT 203 X10'3 (140-440); RED BLOOD COUNT 4.21 X10'6 (4.70-6.10); RED CELL DISTRIBUTION WIDTH 19.4 % (11.5-14.5); WHITE BLOOD COUNT 6.1 X10'3 (4.5-11.0)
[2020-04-11] MEDS ORDERED: normal saline 1000ML IV soln IVB ONE (23:30)
--- NOTE | 2020-04-11 23:33 | NUR ---
AT MD OHLFS REQUEST I SPOKE WITH MD AVINA REGARDING A RAPID COVID TEST. PERMISSION WAS GIVEN TO RUN TEST AND MD AVINA STATED HE WOULD CONTACT THE LAB AND LET THEM KNOW.
[2020-04-11 23:42] LABS: ALANINE AMINOTRANSFERASE 16 U/L (12-78); ALBUMIN 2.4 G/DL (3.4-5.0); ALBUMIN/GLOBULIN RATIO 0.6 (1.1-1.5); ALKALINE PHOSPHATASE 82 IU/L (46-116); ANION GAP 10 (8-16); ASPARTATE AMINO TRANSFERASE 19 U/L (10-37); BILIRUBIN,TOTAL 0.7 MG/DL (0.1-1.0); BLOOD UREA NITROGEN 23 MG/DL (7-18); CHLORIDE 109 MMOL/L (99-107); CREATININE 2.09 MG/DL (0.60-1.10); GLUCOSE 218 MG/DL (70-104); MAGNESIUM 1.6 MG/DL (1.5-2.4); POTASSIUM 4.7 MMOL/L (3.5-5.1); SODIUM 142 MMOL/L (135-145); TOTAL CARBON DIOXIDE 23.2 MMOL/L (24-32); TOTAL PROTEIN 6.4 G/DL (6.4-8.2); TROPONIN I < 0.04 NG/ML (0.0-0.05); eGFR 31 ML/MIN
[2020-04-12] VITALS (8 sets, daily range): BP systolic 121–176; BP diastolic 57–87
[2020-04-12] MEDS ORDERED: VANCOMYCIN 1,500MG inj. 1,500 MG in normal saline 500ml IV soln 500 ML IV ONE ×2
[2020-04-12] MEDS ORDERED: PRED20TA (00:03)
[2020-04-12] MEDS ORDERED: ATOR10TA11 (00:03)
[2020-04-12] MEDS ORDERED: DILT180C49 (00:03)
[2020-04-12] MEDS ORDERED: LEVO250T58 (00:03)
[2020-04-12] MEDS ORDERED: normal saline 1000ML IV soln IVB ONE (00:05)
[2020-04-12 00:06] LABS: ABG BASE EXCESS -2.5 mmol/L (-2.0-3.0); ABG HCO3 21.4 mmol/L (22.0-26.0); ABG OXYGEN SATURATION 97.6 % (95-98); ABG PCO2 (T) 35.8 mmHg (35.0-45.0); ABG PO2 (T) 121.3 mmHg (83-108); ALLEN'S TEST POSITIVE; FCOHb 0.6 % (0.5-1.5); FMetHb 0.2 % (0.3-1.12); FO2Hb 96.8 % (94-100); PATIENT TEMPERATURE 38.3; RESPIRATORY RATE 12 b/min; TOTAL HEMOGLOBIN 10.5 G/dl (14.0-17.9)
[2020-04-12 00:29] LABS: ANISOCYTOSIS 2+; PLATELET ESTIMATE NORMAL; POLYCHROMASIA 1+
[2020-04-12 00:30] LABS: LARGE PLATELETS FEW
--- NOTE | 2020-04-12 03:39 | NUR ---
Attempt to DC from CPAP and switch to NC, pt desat to 86%
[2020-04-12] MEDS ORDERED: ondansetron/PF 4mg/2ml inj IV PRN (04:00)
[2020-04-12] MEDS ORDERED: metoclopramide 5 mg/ml inj IV PRN (04:00)
[2020-04-12] MEDS ORDERED: magnesium 2GM in 50ml NS 50 ML IV PRN (04:00)
[2020-04-12] MEDS: normal saline 1000ml 1,000 ML IV SCH ×3 (04:00→17:48)
[2020-04-12] MEDS ORDERED: magnesium hydroxide 30ml (MOM) UD suspension PO PRN (04:00)
[2020-04-12] MEDS ORDERED: potassium CL 10mEq/100ml bag 100 ML IV PRN ×2 (04:00)
[2020-04-12] MEDS ORDERED: magnesium 4gm in 100ml NS 100 ML IV PRN (04:00)
[2020-04-12] MEDS ORDERED: mag hydrox/Alum hydrox/simeth 30ml oral suspension PO PRN (04:00)
[2020-04-12] MEDS ORDERED: acetaminophen 325mg tablet PO PRN ×2 (04:00)
[2020-04-12] MEDS ORDERED: potassium Cl 20 mEq SR tablet PO PRN ×2 (04:00)
[2020-04-12] MEDS ORDERED: magnesium Cl slow-release 64mg tablet PO PRN (04:00)
[2020-04-12] MEDS ORDERED: HYDROcodone/acetaminophen 5mg/325mg tablet PO PRN (04:00)
--- NOTE | 2020-04-12 04:30 | NUR ---
Patient in room PCU 3028. I have received report from "" RN by telephone from ER and had the opportunity to ask questions and assume patient care.
--- NOTE | 2020-04-12 05:44 | NUR ---
PAGER ID: [phone] MESSAGE: [phone] Baldev Lugo Sr: Patient has a history of DM type 2. Can I order the hyperglycemia protocol? Johanny BOWER [phone]
[2020-04-12] MEDS ORDERED: glucagon, human recombinant 1mg kit SUBCUT PRN (05:45)
[2020-04-12] MEDS ORDERED: dextrose ORAL solution 15 GM/59 ML bottle PO PRN ×2 (05:45)
[2020-04-12] MEDS ORDERED: dextrose 50%-water 50ml dispensing syringe IV PRN ×2 (05:45)
[2020-04-12] MEDS ORDERED: MESSAGE TO PHARMACY PO ONE (05:45)
--- NOTE | 2020-04-12 06:27 | NUR ---
Problems reprioritized. Patient report given, questions answered & plan of care reviewed with Lior BOWER.
--- NOTE | 2020-04-12 06:30 | NUR ---
Patient in room PCU 3028. I have received report from Johanny BOWER and had the opportunity to ask questions and assume patient care.
[2020-04-12 07:11] LABS: HEMOGLOBIN A1C 5.9 % (4.5-6.2)
[2020-04-12] MEDS: diltiazem CD 180mg cap (once-daily) PO SCH (07:48)
[2020-04-12] MEDS: apixaban 2.5mg tablet PO SCH (07:48)
[2020-04-12] MEDS: pantoprazole 40mg Tablet.DR PO SCH (07:49)
[2020-04-12] MEDS: atorvastatin 10mg tablet PO SCH (07:49)
[2020-04-12] MEDS: azithromycin/NS 500mg/250ml 250 ML IV SCH (07:49)
[2020-04-12] MEDS: gabapentin 300mg capsule PO SCH ×2 (07:49→20:40)
[2020-04-12] MEDS: loratadine 10mg tablet PO SCH (07:49)
[2020-04-12] MEDS: K and/or MAG REPLACEMENT MC SCH ×2 (07:52→20:00)
--- NOTE | 2020-04-12 09:27 | NUR ---
Discontinued IV, Cannula in tact Addendum: 04/12/20 at 0928 by Endy CRUM Amended: Links added.
[2020-04-12 16:08] LABS: CLARITY,URINE CLEAR (Clear); COLOR,URINE YELLOW (Yellow); GLUCOSE, URINE NEGATIVE (Neg); KETONES,URINE NEGATIVE (Neg); LEUKOCYTE ESTERASE ,URINE NEGATIVE (Neg); NITRITES, URINE NEGATIVE (Neg); OCCULT BLOOD,URINE NEGATIVE (Neg); PH,URINE 5.5 (4.8-8.0); PROTEIN,URINE 30 mg/dl (Neg)
[2020-04-12 16:11] LABS: UA COLLECTION TYPE NON-SPECIFIED
[2020-04-12 16:15] LABS: BACTERIA,URINE NONE SEEN /HPF (Neg); MUCUS STRANDS FEW /LPF (Neg); RBC,URINE 0-2 /HPF (0-2); SQUAMOUS EPITHELIAL CELL,UR FEW /LPF (FEW); WBC,URINE 0-4 /HPF (0-4)
--- NOTE | 2020-04-12 17:26 | NUR ---
attempted to trial patient off of bipap, patient unable to tolerate hi flow and began desaturating to low 80's, applied bipap back on, will continue to trial patient off of bipap.
--- NOTE | 2020-04-12 18:17 | NUR ---
Patient in room PCU 3028. I have received report from SATHISH Tinajero and had the opportunity to ask questions and assume patient care.
--- NOTE | 2020-04-12 18:32 | NUR ---
Problems reprioritized. Patient report given, questions answered & plan of care reviewed with Melvi BOWER.
[2020-04-12] MEDS ORDERED: diltiazem 5mg/ml 5ml inj. IV ONE (19:45)
[2020-04-12] MEDS: lactobacillus rhamnosus 10,000 MMU CELLS/CAPSULE PO SCH (20:40)
[2020-04-12] MEDS: CefTRIAXone/D5W-Rocephin 1gm 50 ML IV SCH (20:43)
[2020-04-12] MEDS ORDERED: temazepam 15mg capsule PO PRN (21:00)
[2020-04-12] MEDS: insulin glargine (Lantus) pen - multi-dose SQ SCH (21:00)
[2020-04-13] MEDS ORDERED: vancomycin inj 1,250 MG in normal saline 250ml IV soln 250 ML IV SCH ×2
[2020-04-13] MEDS: VANCOMYCIN 1,500MG inj. 1,500 MG in normal saline 500ml IV soln 500 ML IV SCH ×2 (00:05→23:24)
[2020-04-13 02:00] VITALS: BP 127/62
[2020-04-13 06:00] VITALS: BP 138/67
[2020-04-13 06:13] LABS: EOSINOPHILS # (AUTO) 0.1 X10'3 (0-0.9); HEMOGLOBIN 8.9 g/dl (14.0-17.9); MEAN CORPUSCULAR HEMOGLOBIN 25.8 PG (27.0-31.0); MONOCYTES # (AUTO) 0.7 X10'3 (0-0.9)
[2020-04-13 06:15] LABS: BASOPHILS % (AUTO) 0.6 % (0-1); EOSINOPHILS % (AUTO) 3.3 % (0-6); HEMATOCRIT 28.3 % (42.0-52.0); LYMPHOCYTES # (AUTO) 0.6 X10'3 (1.1-4.8); LYMPHOCYTES % (AUTO) 15.9 % (21-51); MEAN CORPUSCULAR HGB CONC 31.4 g/dL (33.0-36.5); MEAN CORPUSCULAR VOLUME 82.1 FL (78-98); MONOCYTES % (AUTO) 17.8 % (2-12); NEUTROPHILS # (AUTO) 2.5 X10'3 (1.8-7.7); NEUTROPHILS % (AUTO) 62.4 % (42-75); PLATELET COUNT 158 X10'3 (140-440); RED BLOOD COUNT 3.45 X10'6 (4.70-6.10); RED CELL DISTRIBUTION WIDTH 19.3 % (11.5-14.5)
[2020-04-13 06:27] LABS: ALANINE AMINOTRANSFERASE 13 U/L (12-78); ALBUMIN/GLOBULIN RATIO 0.6 (1.1-1.5); ALKALINE PHOSPHATASE 62 IU/L (46-116); ANION GAP 8 (8-16); ASPARTATE AMINO TRANSFERASE 15 U/L (10-37); BILIRUBIN,TOTAL 0.4 MG/DL (0.1-1.0); BLOOD UREA NITROGEN 18 MG/DL (7-18); BUN/CREATININE RATIO 11.5 (5.4-32.0); CALCIUM 8.2 MG/DL (8.5-10.1); CHLORIDE 116 MMOL/L (99-107); CREATININE 1.57 MG/DL (0.60-1.10); GLUCOSE 96 MG/DL (70-104); MAGNESIUM 1.6 MG/DL (1.5-2.4); POTASSIUM 4.4 MMOL/L (3.5-5.1); SODIUM 144 MMOL/L (135-145); TOTAL CARBON DIOXIDE 20.4 MMOL/L (24-32); TOTAL PROTEIN 5.2 G/DL (6.4-8.2); eGFR 43 ML/MIN
--- NOTE | 2020-04-13 06:44 | NUR ---
Problems reprioritized. Patient report given, questions answered & plan of care reviewed with SATHISH WHITMORE.
[2020-04-13 07:10] LABS: PLATELET ESTIMATE NORMAL
[2020-04-13 07:11] LABS: ANISOCYTOSIS 2+; POLYCHROMASIA 2+
[2020-04-13] MEDS: pantoprazole 40mg Tablet.DR PO SCH (07:33)
[2020-04-13] MEDS: loratadine 10mg tablet PO SCH (07:34)
[2020-04-13] MEDS: azithromycin/NS 500mg/250ml 250 ML IV SCH (07:34)
[2020-04-13] MEDS: diltiazem CD 180mg cap (once-daily) PO SCH (07:34)
[2020-04-13] MEDS: lactobacillus rhamnosus 10,000 MMU CELLS/CAPSULE PO SCH ×2 (07:34→19:50)
[2020-04-13] MEDS: atorvastatin 10mg tablet PO SCH (07:35)
[2020-04-13] MEDS: normal saline 1000ml 1,000 ML IV SCH ×2 (07:35→17:53)
[2020-04-13] MEDS: apixaban 2.5mg tablet PO SCH (07:35)
[2020-04-13] MEDS: gabapentin 300mg capsule PO SCH ×2 (07:35→19:50)
[2020-04-13] MEDS: K and/or MAG REPLACEMENT MC SCH ×2 (08:00→20:00)
[2020-04-13 11:00] VITALS: BP 131/68
[2020-04-13 16:00] VITALS: BP 127/62
[2020-04-13 18:00] VITALS: BP 134/70
--- NOTE | 2020-04-13 18:38 | NUR ---
Patient in room PCU 3028. I have received report from Gloria BOWER and had the opportunity to ask questions and assume patient care.
--- NOTE | 2020-04-13 18:39 | NUR ---
Problems reprioritized. Patient report given, questions answered & plan of care reviewed with SATHISH Cody.
[2020-04-13] MEDS: CefTRIAXone/D5W-Rocephin 1gm 50 ML IV SCH (19:47)
[2020-04-13] MEDS: insulin glargine (Lantus) pen - multi-dose SQ SCH (21:00)
[2020-04-13 22:00] VITALS: BP 125/62
[2020-04-14] VITALS (8 sets, daily range): BP systolic 131–158; BP diastolic 62–87
[2020-04-14 05:29] LABS: BASOPHILS % (AUTO) 0.8 % (0-1); EOSINOPHILS # (AUTO) 0.3 X10'3 (0-0.9); EOSINOPHILS % (AUTO) 7.6 % (0-6); HEMATOCRIT 30.6 % (42.0-52.0); HEMOGLOBIN 9.5 g/dl (14.0-17.9); LYMPHOCYTES # (AUTO) 0.6 X10'3 (1.1-4.8); LYMPHOCYTES % (AUTO) 16.4 % (21-51); MEAN CORPUSCULAR HEMOGLOBIN 25.6 PG (27.0-31.0); MEAN CORPUSCULAR HGB CONC 31.1 g/dL (33.0-36.5); MEAN CORPUSCULAR VOLUME 82.2 FL (78-98); MEAN PLATELET VOLUME 8.3 FL (7.4-10.4); MONOCYTES # (AUTO) 0.5 X10'3 (0-0.9); MONOCYTES % (AUTO) 13.8 % (2-12); NEUTROPHILS # (AUTO) 2.4 X10'3 (1.8-7.7); NEUTROPHILS % (AUTO) 61.4 % (42-75); PLATELET COUNT 162 X10'3 (140-440); RED BLOOD COUNT 3.73 X10'6 (4.70-6.10); RED CELL DISTRIBUTION WIDTH 19.5 % (11.5-14.5); WHITE BLOOD COUNT 3.9 X10'3 (4.5-11.0)
[2020-04-14 05:48] LABS: ALANINE AMINOTRANSFERASE 9 U/L (12-78); ALBUMIN 1.9 G/DL (3.4-5.0); ALBUMIN/GLOBULIN RATIO 0.6 (1.1-1.5); ALKALINE PHOSPHATASE 74 IU/L (46-116); ANION GAP 10 (8-16); ASPARTATE AMINO TRANSFERASE 18 U/L (10-37); BILIRUBIN,TOTAL 0.5 MG/DL (0.1-1.0); BLOOD UREA NITROGEN 20 MG/DL (7-18); BUN/CREATININE RATIO 12.8 (5.4-32.0); CALCIUM 8.9 MG/DL (8.5-10.1); CHLORIDE 116 MMOL/L (99-107); CREATININE 1.56 MG/DL (0.60-1.10); GLUCOSE 72 MG/DL (70-104); MAGNESIUM 1.6 MG/DL (1.5-2.4); POTASSIUM 4.5 MMOL/L (3.5-5.1); SODIUM 147 MMOL/L (135-145); TOTAL CARBON DIOXIDE 20.6 MMOL/L (24-32); TOTAL PROTEIN 5.3 G/DL (6.4-8.2); eGFR 43 ML/MIN
--- NOTE | 2020-04-14 06:20 | NUR ---
Patient in room PCU 3028. I have received report from Johanny BOWER and had the opportunity to ask questions and assume patient care.
--- NOTE | 2020-04-14 06:31 | NUR ---
Problems reprioritized. Patient report given, questions answered & plan of care reviewed with Nish BOWER.
[2020-04-14] MEDS: K and/or MAG REPLACEMENT MC SCH ×2 (08:00→20:00)
[2020-04-14] MEDS: pantoprazole 40mg Tablet.DR PO SCH (08:45)
[2020-04-14] MEDS: lactobacillus rhamnosus 10,000 MMU CELLS/CAPSULE PO SCH ×2 (08:45→20:50)
[2020-04-14] MEDS: atorvastatin 10mg tablet PO SCH (08:45)
[2020-04-14] MEDS: loratadine 10mg tablet PO SCH (08:45)
[2020-04-14] MEDS: diltiazem CD 180mg cap (once-daily) PO SCH (08:46)
[2020-04-14] MEDS: normal saline 1000ml 1,000 ML IV SCH (08:46)
[2020-04-14] MEDS: apixaban 2.5mg tablet PO SCH (08:46)
[2020-04-14] MEDS: gabapentin 300mg capsule PO SCH ×2 (08:46→20:50)
[2020-04-14] MEDS: azithromycin/NS 500mg/250ml 250 ML IV SCH (08:51)
[2020-04-14 09:03] LABS: ANISOCYTOSIS 2+; PLATELET ESTIMATE NORMAL
[2020-04-14] MEDS ORDERED: methylPREDNISolone sod succ 125mg/2ml vial IV ONE (13:30)
[2020-04-14] MEDS ORDERED: furosemide 10 MG/1 ML 10ml inj IV SCH (13:30)
[2020-04-14] MEDS ORDERED: furosemide 20 MG/2 ML vial ONE (14:28)
[2020-04-14] MEDS ORDERED: methylPREDNISolone sod succ 125mg/2ml vial ONE (14:28)
[2020-04-14] MEDS ORDERED: methylPREDNISolone sod succ/PF 40mg inj. ONE (14:29)
[2020-04-14] MEDS ORDERED: furosemide 20 MG/2 ML vial IV SCH (14:46)
[2020-04-14] MEDS: methylPREDNISolone sod succ 125mg/2ml vial IV SCH ×2 (17:53→20:50)
[2020-04-14] MEDS: metolazone 2.5mg tablet PO SCH (17:54)
--- NOTE | 2020-04-14 18:12 | NUR ---
Problems reprioritized. Patient report given, questions answered & plan of care reviewed with Johanny BOWER.
--- NOTE | 2020-04-14 18:14 | NUR ---
Patient in room PCU 3028. I have received report from Nish BOWER and had the opportunity to ask questions and assume patient care.
--- NOTE | 2020-04-14 19:30 | NUR ---
Out of bed for bedside commode Patient demanded a bedside commode. Patient transferred well, oxygen did drop to the low 80s but patient was asymptomatic and stated "I feel fine" and "it is good to be out of that bed". Patient was able to have saturations between 85-90% when settled on the bedside commode. Saturations were low again when transferring bad into bed but once settled was able to get 90% oxygen saturations. Patient is still on BiPAP with FIO2 of 60%. Will continue to monitor patient.
[2020-04-14] MEDS: CefTRIAXone/D5W-Rocephin 1gm 50 ML IV SCH (20:40)
[2020-04-14] MEDS: furosemide 20 MG/2 ML vial IV SCH (20:50)
[2020-04-14] MEDS: insulin glargine (Lantus) pen - multi-dose SQ SCH (21:00)
[2020-04-14] MEDS: VANCOMYCIN 1,500MG inj. 1,500 MG in normal saline 500ml IV soln 500 ML IV SCH (23:45)
[2020-04-15] VITALS (7 sets, daily range): BP systolic 125–156; BP diastolic 58–73
[2020-04-15] MEDS: methylPREDNISolone sod succ 125mg/2ml vial IV SCH ×4 (01:11→20:28)
[2020-04-15] MEDS: furosemide 20 MG/2 ML vial IV SCH ×4 (01:12→20:28)
[2020-04-15 05:03] LABS: ALANINE AMINOTRANSFERASE 11 U/L (12-78); ALBUMIN 2.1 G/DL (3.4-5.0); ALBUMIN/GLOBULIN RATIO 0.5 (1.1-1.5); ALKALINE PHOSPHATASE 92 IU/L (46-116); ANION GAP 13 (8-16); ASPARTATE AMINO TRANSFERASE 20 U/L (10-37); BILIRUBIN,TOTAL 0.5 MG/DL (0.1-1.0); BLOOD UREA NITROGEN 23 MG/DL (7-18); BUN/CREATININE RATIO 11.9 (5.4-32.0); CALCIUM 9.7 MG/DL (8.5-10.1); CHLORIDE 112 MMOL/L (99-107); CREATININE 1.94 MG/DL (0.60-1.10); GLUCOSE 195 MG/DL (70-104); MAGNESIUM 1.7 MG/DL (1.5-2.4); POTASSIUM 4.9 MMOL/L (3.5-5.1); SODIUM 144 MMOL/L (135-145); TOTAL CARBON DIOXIDE 19.2 MMOL/L (24-32); TOTAL PROTEIN 6.1 G/DL (6.4-8.2); eGFR 33 ML/MIN
[2020-04-15 05:10] LABS: BASOPHILS % (AUTO) 0.3 % (0-1); EOSINOPHILS % (AUTO) 0.2 % (0-6); HEMATOCRIT 33.5 % (42.0-52.0); HEMOGLOBIN 10.4 g/dl (14.0-17.9); LYMPHOCYTES # (AUTO) 0.3 X10'3 (1.1-4.8); LYMPHOCYTES % (AUTO) 5.6 % (21-51); MEAN CORPUSCULAR HEMOGLOBIN 25.5 PG (27.0-31.0); MEAN CORPUSCULAR VOLUME 82.2 FL (78-98); MEAN PLATELET VOLUME 8.3 FL (7.4-10.4); MONOCYTES # (AUTO) 0.2 X10'3 (0-0.9); MONOCYTES % (AUTO) 3.9 % (2-12); NEUTROPHILS # (AUTO) 4.5 X10'3 (1.8-7.7); PLATELET COUNT 191 X10'3 (140-440); RED BLOOD COUNT 4.07 X10'6 (4.70-6.10)
[2020-04-15 06:10] LABS: ANISOCYTOSIS 2+; PLATELET ESTIMATE NORMAL
--- NOTE | 2020-04-15 06:14 | NUR ---
Problems reprioritized. Patient report given, questions answered & plan of care reviewed with Nish BOWER.
--- NOTE | 2020-04-15 06:24 | NUR ---
Patient in room PCU 3028. I have received report from Johanny BOWER and had the opportunity to ask questions and assume patient care.
[2020-04-15] MEDS: diltiazem CD 180mg cap (once-daily) PO SCH (07:22)
[2020-04-15] MEDS: lactobacillus rhamnosus 10,000 MMU CELLS/CAPSULE PO SCH ×2 (07:23→20:28)
[2020-04-15] MEDS: gabapentin 300mg capsule PO SCH ×2 (07:23→20:29)
[2020-04-15] MEDS: loratadine 10mg tablet PO SCH (07:24)
[2020-04-15] MEDS: pantoprazole 40mg Tablet.DR PO SCH (07:24)
[2020-04-15] MEDS: atorvastatin 10mg tablet PO SCH (07:24)
[2020-04-15] MEDS: apixaban 2.5mg tablet PO SCH (07:25)
[2020-04-15] MEDS: metolazone 2.5mg tablet PO SCH (07:26)
[2020-04-15] MEDS: azithromycin/NS 500mg/250ml 250 ML IV SCH (07:26)
[2020-04-15] MEDS: K and/or MAG REPLACEMENT MC SCH ×2 (07:48→20:00)
[2020-04-15] MEDS: insulin Lispro (HumaLOG) vial - multi-dose SQ SCH ×2 (12:41→19:35)
[2020-04-15] MEDS: NUT.TX.GLUC.INTOLER,LAC-FR,SOY (GLUCERNA) 237 ML PO SCH (18:00)
--- NOTE | 2020-04-15 18:00 | NUR ---
Patient in room PCU 3028. I have received report from Nish BOWER and had the opportunity to ask questions and assume patient care.
--- NOTE | 2020-04-15 18:12 | NUR ---
Problems reprioritized. Patient report given, questions answered & plan of care reviewed with Johanny BOWER.
--- NOTE | 2020-04-15 18:12 | NUR ---
Student documentation: I have reviewed and agree with all interventions, assessments performed and documented by SN Reed Student Medication Administration: For this medication-pass time frame, all medication were reviewed, dispensed, administered and documented per hospital policy by SN Reed. .
[2020-04-15] MEDS: CefTRIAXone/D5W-Rocephin 1gm 50 ML IV SCH (20:28)
[2020-04-15] MEDS: insulin glargine (Lantus) pen - multi-dose SQ SCH (21:55)
[2020-04-15] MEDS ORDERED: VANCOMYCIN LEVEL IV ONE (23:30)
[2020-04-16] MEDS: VANCOMYCIN 1,500MG inj. 1,500 MG in normal saline 500ml IV soln 500 ML IV SCH ×2
--- NOTE | 2020-04-16 00:22 | NUR ---
Critical Vancomycin Trough 24.0 Pharmacy notified of critical result, told to hold 0000 Vancomycin. MD Harmon was notified of results and pharmacy decision, okayed to hold dose. Will continue to monitor.
[2020-04-16] MEDS: furosemide 20 MG/2 ML vial IV SCH ×4 (01:18→21:23)
[2020-04-16] MEDS: methylPREDNISolone sod succ 125mg/2ml vial IV SCH ×4 (01:18→21:21)
--- NOTE | 2020-04-16 04:37 | NUR ---
Confusion Patient was found taking off Bipap and saturations in the 30-40s%. Patient was quickly put back on and saturations came back up to 94% but confusion stayed. Patient soon after stated that "i always get confused in the morning". Will continue to monitor.
[2020-04-16 05:08] LABS: BASOPHILS % (AUTO) 0.2 % (0-1); EOSINOPHILS % (AUTO) 0 % (0-6); HEMATOCRIT 30.3 % (42.0-52.0); HEMOGLOBIN 9.5 g/dl (14.0-17.9); LYMPHOCYTES # (AUTO) 0.3 X10'3 (1.1-4.8); LYMPHOCYTES % (AUTO) 10.9 % (21-51); MEAN CORPUSCULAR HEMOGLOBIN 25.2 PG (27.0-31.0); MEAN CORPUSCULAR HGB CONC 31.5 g/dL (33.0-36.5); MEAN CORPUSCULAR VOLUME 80.1 FL (78-98); MEAN PLATELET VOLUME 8.3 FL (7.4-10.4); MONOCYTES # (AUTO) 0.2 X10'3 (0-0.9); MONOCYTES % (AUTO) 6.4 % (2-12); NEUTROPHILS # (AUTO) 2.4 X10'3 (1.8-7.7); NEUTROPHILS % (AUTO) 82.5 % (42-75); PLATELET COUNT 180 X10'3 (140-440); RED BLOOD COUNT 3.78 X10'6 (4.70-6.10); RED CELL DISTRIBUTION WIDTH 19.2 % (11.5-14.5); WHITE BLOOD COUNT 2.9 X10'3 (4.5-11.0)
[2020-04-16 05:25] LABS: ALANINE AMINOTRANSFERASE 15 U/L (12-78); ALBUMIN/GLOBULIN RATIO 0.6 (1.1-1.5); ALKALINE PHOSPHATASE 74 IU/L (46-116); ANION GAP 11 (8-16); ASPARTATE AMINO TRANSFERASE 16 U/L (10-37); BILIRUBIN,TOTAL 0.5 MG/DL (0.1-1.0); BLOOD UREA NITROGEN 37 MG/DL (7-18); BUN/CREATININE RATIO 17.1 (5.4-32.0); CALCIUM 9.5 MG/DL (8.5-10.1); CHLORIDE 111 MMOL/L (99-107); CREATININE 2.17 MG/DL (0.60-1.10); GLUCOSE 172 MG/DL (70-104); MAGNESIUM 1.7 MG/DL (1.5-2.4); POTASSIUM 3.9 MMOL/L (3.5-5.1); SODIUM 145 MMOL/L (135-145); TOTAL CARBON DIOXIDE 23.5 MMOL/L (24-32); TOTAL PROTEIN 5.6 G/DL (6.4-8.2); eGFR 29 ML/MIN
--- NOTE | 2020-04-16 06:17 | NUR ---
Problems reprioritized. Patient report given, questions answered & plan of care reviewed with Nish BOWER.
--- NOTE | 2020-04-16 06:42 | NUR ---
Patient in room PCU 3028. I have received report from Johanny BOWER and had the opportunity to ask questions and assume patient care.
[2020-04-16 07:00] VITALS: BP 133/67
[2020-04-16 07:22] LABS: PLATELET ESTIMATE NORMAL; TOTAL CELLS COUNTED 100
[2020-04-16 07:23] LABS: ANISOCYTOSIS 2+; GIANT PLATELET FEW; LARGE PLATELETS FEW
[2020-04-16] MEDS: insulin Lispro (HumaLOG) vial - multi-dose SQ SCH ×3 (07:46→19:22)
[2020-04-16] MEDS: apixaban 2.5mg tablet PO SCH (07:47)
[2020-04-16] MEDS: loratadine 10mg tablet PO SCH (07:47)
[2020-04-16] MEDS: atorvastatin 10mg tablet PO SCH (07:47)
[2020-04-16] MEDS: diltiazem CD 180mg cap (once-daily) PO SCH (07:47)
[2020-04-16] MEDS: metolazone 2.5mg tablet PO SCH (07:47)
[2020-04-16] MEDS: pantoprazole 40mg Tablet.DR PO SCH (07:47)
[2020-04-16] MEDS: gabapentin 300mg capsule PO SCH ×2 (07:47→21:23)
[2020-04-16] MEDS: lactobacillus rhamnosus 10,000 MMU CELLS/CAPSULE PO SCH ×2 (07:48→21:22)
[2020-04-16 07:55] LABS: ABG BASE EXCESS -2.2 mmol/L (-2.0-3.0); ABG HCO3 21.7 mmol/L (22.0-26.0); ABG OXYGEN SATURATION 95.9 % (95-98); ABG PCO2 (T) 34.5 mmHg (35.0-45.0); ABG PO2 (T) 88.1 mmHg (83-108); ALLEN'S TEST POSITIVE; FCOHb 0.2 % (0.5-1.5); FMetHb 0.1 % (0.3-1.12); FO2Hb 95.6 % (94-100); RESPIRATORY RATE 12 b/min; TIDAL VOLUME 1366 mL; TOTAL HEMOGLOBIN 11.3 G/dl (14.0-17.9)
[2020-04-16] MEDS: K and/or MAG REPLACEMENT MC SCH ×2 (08:00→20:00)
[2020-04-16] MEDS ORDERED: azithromycin 250mg tablet PO SCH (08:00)
[2020-04-16] MEDS: NUT.TX.GLUC.INTOLER,LAC-FR,SOY (GLUCERNA) 237 ML PO SCH ×3 (08:31→18:00)
[2020-04-16 11:00] VITALS: BP 118/85
[2020-04-16] MEDS: vancomycin inj 1,250 MG in normal saline 250ml IV soln 250 ML IV SCH (12:22)
--- NOTE | 2020-04-16 13:07 | NUR ---
Page sent to Dr. Cheung: PAGER ID: [phone] MESSAGE: [phone] Baldev Lugo: The family is asking if he can get his med Repatha prescribed by Zeeshan which is biweekly and on pt's med rec. FYI, pt off bipap now, 15L sats 95%. thanks, Elizabet [phone]
[2020-04-16 15:00] VITALS: BP 129/91
--- NOTE | 2020-04-16 17:45 | NUR ---
Page sent to Dr. Cheung: PAGER ID: [phone] MESSAGE: [phone] Baldev Lugo: Just an FYI, PT is still tachycardic, HR has been 100's-120's. He gets 180mg Cardizem po daily in AM. Thanks! Elizabet [phone]
[2020-04-16 18:00] VITALS: BP 137/100
--- NOTE | 2020-04-16 18:49 | NUR ---
Patient in room PCU 3028. I have received report from Tammy BOWER and had the opportunity to ask questions and assume patient care.
--- NOTE | 2020-04-16 18:51 | NUR ---
Problems reprioritized. Patient report given, questions answered & plan of care reviewed with Minerva BOWER.
--- NOTE | 2020-04-16 18:55 | NUR ---
Patient just now receiving dinner tray so will cover with insulin when done eating.
[2020-04-16] MEDS: CefTRIAXone/D5W-Rocephin 1gm 50 ML IV SCH (21:23)
[2020-04-16] MEDS: insulin glargine (Lantus) pen - multi-dose SQ SCH (21:42)
[2020-04-16 22:00] VITALS: BP 126/82
[2020-04-17 02:00] VITALS: BP 114/71
[2020-04-17] MEDS: methylPREDNISolone sod succ 125mg/2ml vial IV SCH ×3 (02:27→15:05)
[2020-04-17] MEDS: furosemide 20 MG/2 ML vial IV SCH ×3 (02:27→15:07)
[2020-04-17 04:00] VITALS: BP 129/81
[2020-04-17 05:12] LABS: BASOPHILS % (AUTO) 0.1 % (0-1); EOSINOPHILS % (AUTO) 0 % (0-6); HEMOGLOBIN 10.4 g/dl (14.0-17.9); LYMPHOCYTES # (AUTO) 0.3 X10'3 (1.1-4.8); LYMPHOCYTES % (AUTO) 7.7 % (21-51); MEAN CORPUSCULAR HEMOGLOBIN 25.2 PG (27.0-31.0); MEAN CORPUSCULAR HGB CONC 31.4 g/dL (33.0-36.5); MEAN CORPUSCULAR VOLUME 80.3 FL (78-98); MEAN PLATELET VOLUME 8.3 FL (7.4-10.4); MONOCYTES # (AUTO) 0.2 X10'3 (0-0.9); MONOCYTES % (AUTO) 4.4 % (2-12); NEUTROPHILS # (AUTO) 3.6 X10'3 (1.8-7.7); NEUTROPHILS % (AUTO) 87.8 % (42-75); PLATELET COUNT 207 X10'3 (140-440); RED BLOOD COUNT 4.11 X10'6 (4.70-6.10); RED CELL DISTRIBUTION WIDTH 18.9 % (11.5-14.5); WHITE BLOOD COUNT 4.1 X10'3 (4.5-11.0)
[2020-04-17 05:16] LABS: ALANINE AMINOTRANSFERASE 12 U/L (12-78); ALBUMIN 2.2 G/DL (3.4-5.0); ALBUMIN/GLOBULIN RATIO 0.6 (1.1-1.5); ALKALINE PHOSPHATASE 68 IU/L (46-116); ANION GAP 9 (8-16); ASPARTATE AMINO TRANSFERASE 14 U/L (10-37); BILIRUBIN,TOTAL 0.4 MG/DL (0.1-1.0); BLOOD UREA NITROGEN 52 MG/DL (7-18); BUN/CREATININE RATIO 20.3 (5.4-32.0); CALCIUM 9.7 MG/DL (8.5-10.1); CHLORIDE 111 MMOL/L (99-107); CREATININE 2.56 MG/DL (0.60-1.10); GLUCOSE 155 MG/DL (70-104); MAGNESIUM 1.8 MG/DL (1.5-2.4); POTASSIUM 3.7 MMOL/L (3.5-5.1); SODIUM 148 MMOL/L (135-145); TOTAL CARBON DIOXIDE 28.4 MMOL/L (24-32); TOTAL PROTEIN 5.8 G/DL (6.4-8.2); eGFR 24 ML/MIN
[2020-04-17 06:00] VITALS: BP 144/88
[2020-04-17 06:10] LABS: ANISOCYTOSIS 2+; PLATELET ESTIMATE NORMAL
--- NOTE | 2020-04-17 06:17 | NUR ---
Problems reprioritized. Patient report given, questions answered & plan of care reviewed with Dav BOWER.
--- NOTE | 2020-04-17 06:25 | NUR ---
Patient in room PCU 3028. I have received report from SATHISH Palma and had the opportunity to ask questions and assume patient care.
[2020-04-17] MEDS: K and/or MAG REPLACEMENT MC SCH (07:31)
[2020-04-17] MEDS: diltiazem CD 180mg cap (once-daily) PO SCH (07:47)
[2020-04-17] MEDS: pantoprazole 40mg Tablet.DR PO SCH (07:47)
[2020-04-17] MEDS: loratadine 10mg tablet PO SCH (07:47)
[2020-04-17] MEDS: lactobacillus rhamnosus 10,000 MMU CELLS/CAPSULE PO SCH (07:48)
[2020-04-17] MEDS: apixaban 2.5mg tablet PO SCH (07:48)
[2020-04-17] MEDS: atorvastatin 10mg tablet PO SCH (07:48)
[2020-04-17] MEDS: metolazone 2.5mg tablet PO SCH (07:48)
[2020-04-17] MEDS: gabapentin 300mg capsule PO SCH (07:48)
[2020-04-17] MEDS: NUT.TX.GLUC.INTOLER,LAC-FR,SOY (GLUCERNA) 237 ML PO SCH ×2 (07:59→13:00)
[2020-04-17] MEDS: insulin Lispro (HumaLOG) vial - multi-dose SQ SCH ×2 (10:19→13:16)
[2020-04-17 11:00] VITALS: BP 132/74
[2020-04-17] MEDS: vancomycin inj 1,250 MG in normal saline 250ml IV soln 250 ML IV SCH (12:12)
[2020-04-17] MEDS ORDERED: EVOLOCUMAB IM SCH (13:00)
--- NOTE | 2020-04-17 13:30 | NUR ---
Initial: Pt presented with SOB, admit with PNA and acute respiratory failure with hypoxemia. Pt on abx for PNA and resp fail improving per MD note. Pt on a heart healthy CHO controlled diet, initially with 100% PO intake which trended down to 0% PO intake x 3 meals, however back up to 75-100% PO intake x 5 most recent meals. Pt with Glucerna ordered TID, documented with 25% PO intake x 1. Pt meeting nutrient needs with PO intake of meals at this time. LBM 04/15. PRN bowel care available. No further nutrition intervention implemented at this time. Will continue to follow. Recommendations: 1) Continue heart healthy CHO controlled diet 2) Glucerna TID 3) Bowel care PRN 4) Scaled wt per rx Addendum: 04/17/20 at [address] Amended: Links added.
--- NOTE | 2020-04-17 15:56 | NUR ---
Transfered to [facility]. Called report kvng Beck per md for transfer. Went with belongings. Addendum: 04/17/20 at 1612 by Dav Mueller RN [facility] picked up patient.
[2020-04-19] MEDS ORDERED: VANCOMYCIN LEVEL IV ONE (10:30)
== END 2020-04-17 15:49 | DRG 291 ==
LOC: ER 22:56 → ED HOLD 04-12 04:00 → PCU 3S 04-12 04:37
PROVIDERS: ADMIT Family Medicine; ATTEND Family Medicine
PROC: 5A09557 Assistance with Respiratory Ventilation, Greater than 96 Consecutive Hours, Continuous Positive Airway Pressure (ICD-10-PCS; principal; 2020-04-11)
DX: I50.33 Acute on chronic diastolic (congestive) heart failure (principal); J18.9 Pneumonia, unspecified organism; G93.41 Metabolic encephalopathy; J96.21 Acute and chronic respiratory failure with hypoxia; E87.0 Hyperosmolality and hypernatremia; F05 Delirium due to known physiological condition; J44.0 Chronic obstructive pulmonary disease with (acute) lower respiratory infection; N17.9 Acute kidney failure, unspecified; D64.9 Anemia, unspecified; E11.22 Type 2 diabetes mellitus with diabetic chronic kidney disease; G47.33 Obstructive sleep apnea (adult) (pediatric); I95.9 Hypotension, unspecified; I25.10 Atherosclerotic heart disease of native coronary artery without angina pectoris; I27.81 Cor pulmonale (chronic); I48.91 Unspecified atrial fibrillation; N18.3 Chronic kidney disease, stage 3 (moderate); Z79.01 Long term (current) use of anticoagulants; Z85.528 Personal history of other malignant neoplasm of kidney; Z90.5 Acquired absence of kidney; Z95.1 Presence of aortocoronary bypass graft; Z95.2 Presence of prosthetic heart valve; Z99.81 Dependence on supplemental oxygen; Z88.0 Allergy status to penicillin
CPT/HCPCS: 36415; 36600; 71045; 80053; 80202; 81001; 82803; 82948; 83036; 83605; 83735; 83880; 84145; 84484; 85018; 85025; 85610; 85730; 87040; 87081; 87635; 92508; 92616; 94660; 94760; 97110; 97161; 97530; 99285; G0378; J0456; J0696; J1815; J1940; J2920; J2930; J3370; J3490; J7030; J7040; J7050

== ENCOUNTER 2020-05-13 13:54 | Outpatient (CLI) | payer OTHER ==
[~2020-05-13 13:54] MED LIST changes: +ATOR10TA11; +DILT180C49; +LEVO250T58; +PRED20TA
== END 2020-05-13 23:59 | disposition home or self-care (01) ==
LOC: CARD DIAG 13:54
PROVIDERS: ATTEND Internal Medicine
DX: N28.1 Cyst of kidney, acquired (principal); I34.0 Nonrheumatic mitral (valve) insufficiency
CPT/HCPCS: 76775; 93306

== ENCOUNTER 2020-08-08 18:23 | Emergency (ER) | payer MEDICARE ==
[~2020-08-08] VITALS: Ht 182.9 cm; Wt 90.9 kg
--- NOTE | 2020-08-08 20:34 | NUR ---
Pt's daughter Zina and Spouse Nany phoned to inquire about the patient's status. She left her phone number where she can be reached if there is any update about her father's condition - [phone].
[2020-08-08 21:54] LABS: BASOPHILS # (AUTO) 0.1 X10'3 (0-0.2); BASOPHILS % (AUTO) 1.3 % (0-1); EOSINOPHILS # (AUTO) 0.1 X10'3 (0-0.9); HEMATOCRIT 33.5 % (42.0-52.0); HEMOGLOBIN 10.3 g/dl (14.0-17.9); LYMPHOCYTES # (AUTO) 0.6 X10'3 (1.1-4.8); MEAN CORPUSCULAR HEMOGLOBIN 23.8 PG (27.0-31.0); MEAN CORPUSCULAR HGB CONC 30.7 g/dL (33.0-36.5); MEAN CORPUSCULAR VOLUME 77.5 FL (78-98); MEAN PLATELET VOLUME 7.2 FL (7.4-10.4); MONOCYTES # (AUTO) 0.4 X10'3 (0-0.9); MONOCYTES % (AUTO) 8.6 % (2-12); NEUTROPHILS # (AUTO) 3.6 X10'3 (1.8-7.7); NEUTROPHILS % (AUTO) 75.1 % (42-75); PLATELET COUNT 210 X10'3 (140-440); RED BLOOD COUNT 4.32 X10'6 (4.70-6.10); WHITE BLOOD COUNT 4.8 X10'3 (4.5-11.0)
[2020-08-08 22:03] LABS: ALANINE AMINOTRANSFERASE 19 U/L (12-78); ALBUMIN 2.6 G/DL (3.4-5.0); ALBUMIN/GLOBULIN RATIO 0.7 (1.1-1.5); ALKALINE PHOSPHATASE 54 IU/L (46-116); ANION GAP 4 (8-16); ASPARTATE AMINO TRANSFERASE 14 U/L (10-37); BILIRUBIN,TOTAL 0.5 MG/DL (0.1-1.0); BLOOD UREA NITROGEN 51 MG/DL (7-18); BUN/CREATININE RATIO 26.4 (5.4-32.0); CALCIUM 9.9 MG/DL (8.5-10.1); CHLORIDE 106 MMOL/L (99-107); CREATININE 1.93 MG/DL (0.60-1.10); GLUCOSE 110 MG/DL (70-104); LIPASE 78 U/L (73-393); SODIUM 141 MMOL/L (135-145); TOTAL CARBON DIOXIDE 30.8 MMOL/L (24-32); TOTAL PROTEIN 6.6 G/DL (6.4-8.2); eGFR 33 ML/MIN
--- NOTE | 2020-08-08 22:03 | NUR ---
HE RECEIVED AN ENEMA, SAT ON COMMODE AND HE WAS DIGITALY DISIMPACTED AND NOW HIS ANAL VAULT IS EMPTY. WILL SEE IF MORE COMES DOWN. MODERATE HARD/SOFT BM IN BOWL.
--- NOTE | 2020-08-08 22:20 | NUR ---
DAUGHTER CALLED AND WAS WONDERING HOW TO GET HIM HOME SINCE SHE CANNOT TRANSFER HIM HERSELF AND HE IS BASICALLY BEDRIDDEN. I GAVE HER THE PHONE NUMBER TO [employer] AND TO CALL ME BACK WHEN SHE HAS GOTTEN OFF THE PHONE WITH THEM.
[2020-08-08 23:00] LABS: ANISOCYTOSIS 3+; ELLIPTOCYTES FEW; MICROCYTOSIS 1+; PLATELET ESTIMATE NORMAL; POLYCHROMASIA FEW; TEAR DROP CELLS FEW
[2020-08-08 23:17] VITALS: BP 136/84
== END 2020-08-08 23:18 | disposition home or self-care (01) ==
LOC: ER 18:24
DX: K59.00 Constipation, unspecified (principal); R10.9 Unspecified abdominal pain; I48.91 Unspecified atrial fibrillation; I25.10 Atherosclerotic heart disease of native coronary artery without angina pectoris; J44.9 Chronic obstructive pulmonary disease, unspecified; E11.9 Type 2 diabetes mellitus without complications; Z87.01 Personal history of pneumonia (recurrent); Z95.0 Presence of cardiac pacemaker; Z98.890 Other specified postprocedural states; Z60.2 Problems related to living alone; Z88.0 Allergy status to penicillin; Z79.899 Other long term (current) drug therapy
CPT/HCPCS: 36415; 80053; 83605; 83690; 85008; 85025; 99284

== ENCOUNTER 2020-09-16 13:05 | Emergency (ER) | payer MEDICARE ==
[~2020-09-16] VITALS: Ht 180.3 cm; Wt 81.8 kg
--- NOTE | 2020-09-16 13:40 | NUR ---
VASILIY SPENCER (DAUGHTER) [phone] OR [phone] PLEASE GIVE AN UPDATE WHEN ABLE
[2020-09-16] MEDS ORDERED: diltiazem 5mg/ml 5ml inj. IV ONE ×2 (14:10→14:55)
[2020-09-16 14:53] LABS: BASOPHILS # (AUTO) 0.1 X10'3 (0-0.2); BASOPHILS % (AUTO) 1.1 % (0-1); EOSINOPHILS # (AUTO) 0.4 X10'3 (0-0.9); EOSINOPHILS % (AUTO) 6.3 % (0-6); HEMOGLOBIN 9.6 g/dl (14.0-17.9); LYMPHOCYTES % (AUTO) 16.5 % (21-51); MEAN PLATELET VOLUME 7.7 FL (7.4-10.4); MONOCYTES # (AUTO) 0.5 X10'3 (0-0.9); MONOCYTES % (AUTO) 9.4 % (2-12); NEUTROPHILS # (AUTO) 3.9 X10'3 (1.8-7.7); NEUTROPHILS % (AUTO) 66.7 % (42-75); PLATELET COUNT 162 X10'3 (140-440)
[2020-09-16 15:03] LABS: PARTIAL THROMBOPLASTIN TIME 29 SECONDS (22-32)
[2020-09-16 15:07] LABS: ALANINE AMINOTRANSFERASE 12 U/L (12-78); ALBUMIN 2.6 G/DL (3.4-5.0); ALBUMIN/GLOBULIN RATIO 0.7 (1.1-1.5); ALKALINE PHOSPHATASE 56 IU/L (46-116); ANION GAP 5 (8-16); ASPARTATE AMINO TRANSFERASE 14 U/L (10-37); BILIRUBIN,TOTAL 0.7 MG/DL (0.1-1.0); BLOOD UREA NITROGEN 45 MG/DL (7-18); BUN/CREATININE RATIO 23.2 (5.4-32.0); CHLORIDE 104 MMOL/L (99-107); CREATININE 1.94 MG/DL (0.60-1.10); GLUCOSE 95 MG/DL (70-104); POTASSIUM 4.1 MMOL/L (3.5-5.1); SODIUM 139 MMOL/L (135-145); TOTAL CARBON DIOXIDE 30.3 MMOL/L (24-32); TOTAL PROTEIN 6.2 G/DL (6.4-8.2); eGFR 33 ML/MIN
[2020-09-16 15:09] LABS: HEMATOCRIT 30.1 % (42.0-52.0); MEAN CORPUSCULAR HEMOGLOBIN 22.9 PG (27.0-31.0); MEAN CORPUSCULAR HGB CONC 30.7 g/dL (33.0-36.5); MEAN CORPUSCULAR VOLUME 74.6 FL (78-98); RED BLOOD COUNT 4.04 X10'6 (4.70-6.10); RED CELL DISTRIBUTION WIDTH 20.6 % (11.5-14.5); WHITE BLOOD COUNT 5.9 X10'3 (4.5-11.0)
[2020-09-16] MEDS ORDERED: LIDOcaine 2% 10ml TOPICAL JELLY (Urojet) TP ONE (15:10)
[2020-09-16 15:41] LABS: ANISOCYTOSIS 3+; MICROCYTOSIS 1+; PLATELET ESTIMATE NORMAL
[2020-09-16 15:42] LABS: ELLIPTOCYTES FEW; POLYCHROMASIA FEW; SCHISTOCYTES FEW
[2020-09-16] MEDS: metoprolol tartrate 1mg/ml inj IV SCH ×2 (16:40→17:56)
--- NOTE | 2020-09-16 18:32 | NUR ---
DAUGHTER CALLED TO SAY THEY ARENT ABLE TO TAKE HIM IN CAR. AND ASKED ABOUT US SETTING UP [employer].
--- NOTE | 2020-09-16 18:35 | NUR ---
PT DAUGHTERS (VASILIY SPENCER) WANTS TO BE CALLED BEFORE HE DISCHARGED TO LET HER KNOW WHAT IS GOING ON WITH DAD.
[2020-09-16 19:52] VITALS: BP 100/62
== END 2020-09-16 19:54 | disposition home or self-care (01) ==
LOC: ER 13:06
DX: T83.098A Other mechanical complication of other urinary catheter, initial encounter (principal); R31.9 Hematuria, unspecified; I48.91 Unspecified atrial fibrillation; I25.10 Atherosclerotic heart disease of native coronary artery without angina pectoris; J44.9 Chronic obstructive pulmonary disease, unspecified; E11.9 Type 2 diabetes mellitus without complications; Z87.01 Personal history of pneumonia (recurrent); Z95.0 Presence of cardiac pacemaker; Z98.890 Other specified postprocedural states; Z60.2 Problems related to living alone; Z88.0 Allergy status to penicillin; Z79.899 Other long term (current) drug therapy; Y84.6 Urinary catheterization as the cause of abnormal reaction of the patient, or of later complication, without mention of misadventure at the time of the procedure; Y92.89 Other specified places as the place of occurrence of the external cause
CPT/HCPCS: 36415; 51702; 80053; 85008; 85025; 85610; 85730; 93005; 96374; 96375; 96376; 99285; J3490